=== PATIENT | female | born 1935 | race Caucasian/White ===

== ENCOUNTER 2019-05-25 13:54 | Inpatient (IN) | payer MEDICARE, BC ==
[2019-05-25] MEDS ORDERED: NALOXONE 0.4 MG/ML 1 ML VIAL IV PRN (15:02)
--- NOTE | 2019-05-25 15:02 | ED ---
Fall HPI - General Chief Complaint: Fall Stated Complaint: Broken Left Femur Time Seen by Provider: 05/25/19 14:00 Source: patient, EMS, RN notes reviewed, old records reviewed Mode of arrival: EMS - History of Present Illness Initial Comments: This is a 83-year-old female her prior history of hip replacement who apparently was stepping off the scale today at her nursing facility when she fell she did sustain a femur fracture on the left side. She was seen initially at [facility] transfer here for evaluation. The case had been discussed prior to arrival with Dr. Jaeger who is agreed to accept the patient transfer. Patient does have dementia she complains of no other pain no head neck or back pain no other modifying factors at this time. MD Complaint: fall - Related Data Allergies Allergy/AdvReac Type Severity Reaction Status Date / Time Penicillins Allergy Swelling Verified 05/25/19 14:49 Review of Systems ROS Statement: Those systems with pertinent positive or pertinent negative responses have been documented in the HPI. ROS Other: All systems not noted in ROS Statement are negative. Past Medical History Past Medical History: Dementia, Deep Vein Thrombosis (DVT), Hyperlipidemia, Hypertension, Thyroid Disorder Additional Past Medical History / Comment(s): Hypothyroidism History of Any Multi-Drug Resistant Organisms: None Reported Past Surgical History: Cholecystectomy, Hysterectomy Additional Past Surgical History / Comment(s): Left hip replacement, [place] filter Past Psychological History: No Psychological Hx Reported Smoking Status: Never smoker Past Alcohol Use History: None Reported Past Drug Use History: None Reported General Exam - General Exam Comments Initial Comments: This is a well-developed well-nourished awake alert but pleasantly confused female Limitations: altered mental status General appearance: alert, in no apparent distress Head exam: Present: atraumatic, normocephalic, normal inspection Eye exam: Present: normal appearance, PERRL, EOMI. Absent: scleral icterus, conjunctival injection, periorbital swelling ENT exam: Present: normal exam, mucous membranes moist Neck exam: Present: normal inspection. Absent: tenderness, meningismus, lymphadenopathy Respiratory exam: Present: normal lung sounds bilaterally. Absent: respiratory distress, wheezes, rales, rhonchi, stridor Cardiovascular Exam: Present: regular rate, normal rhythm, normal heart sounds. Absent: systolic murmur, diastolic murmur, rubs, gallop, clicks GI/Abdominal exam: Present: soft, normal bowel sounds. Absent: distended, tenderness, guarding, rebound, rigid Extremities exam: Present: tenderness, normal capillary refill, other (Tennis palpation of the mid left thigh no open wound seen no sensorimotor vascular deficits distally no tenderness over the hip or pelvis.). Absent: normal inspection, full ROM, pedal edema, joint swelling, calf tenderness Back exam: Present: normal inspection Neurological exam: Present: alert, oriented X3, CN II-XII intact Psychiatric exam: Present: normal affect, normal mood Skin exam: Present: warm, dry, intact, normal color. Absent: rash Course Vital Signs 05/25/19 14:04 Temperature 97.6 F Pulse Rate 58 L Respiratory 14 Rate Blood Pressure 140/59 O2 Sat by Pulse 98 Oximetry Medical Decision Making - Medical Decision Making Did review the materials presented from the sending facility patient be admitted Dr. Jaeger. Disposition Clinical Impression: Fall, Left femoral shaft fracture Disposition: ADMITTED IP TO THIS [facility] Condition: Fair Referrals: Beau Chacon MD [Primary Care Provider] - 1-2 days
[2019-05-25] MEDS: SODIUM CHLORIDE 0.9% 1,000 ML IV SCH (15:22)
--- NOTE | 2019-05-25 17:34 | P.HPOR ---
History of Present Illness H&P Date: 05/25/19 Chief Complaint: Left hip/leg pain She presents as a [facility]iah transferred from [facility] with history of fall, sustaining injury to her left femur. She has history of dementia and resides in an Alzheimer unit in an extended care facility. She apparently fell while step ping off of the scale this morning. The patient is a poor historian. Family is at bedside. Past Medical History Past Medical History: Dementia, Deep Vein Thrombosis (DVT), Hyperlipidemia, Hypertension, Thyroid Disorder Additional Past Medical History / Comment(s): Hypothyroidism History of Any Multi-Drug Resistant Organisms: None Reported Past Surgical History: Cholecystectomy, Hysterectomy Additional Past Surgical History / Comment(s): Left hip replacement, [place] filter Past Psychological History: No Psychological Hx Reported Smoking Status: Never smoker Past Alcohol Use History: None Reported Past Drug Use History: None Reported Medications and Allergies Home Medications Medication Instructions Recorded Confirmed Type Acetaminophen Tab [Tylenol Tab] 650 mg PO BID@0700,209905/25/19 05/25/19 History Acetaminophen Tab [Tylenol Tab] 650 mg PO Q4H PRN 05/25/19 05/25/19 History Artificial Tears-Hypromellose 2 drops BOTH EYES DAILY PRN 05/25/19 05/25/19 History [Artificial Tear Drops] Aspirin EC [Ecotrin Low Dose] 81 mg PO HS@209905/25/19 05/25/19 History Atorvastatin [Lipitor] 80 mg PO HS@209905/25/19 05/25/19 History Biotin 1mg 1 mg PO DAILY@69905/25/19 05/25/19 History Calcium Carbonate/Vitamin D3 1 tab PO DAILY@69905/25/19 05/25/19 History [Calcium 600-Vit D3 200 Tablet] Donepezil [Aricept] 10 mg PO HS@209905/25/19 05/25/19 History Folic Acid 0.8 mg PO DAILY@69905/25/19 05/25/19 History Hydrochlorothiazide [Hydrodiuril] 50 mg PO DAILY@69905/25/19 05/25/19 History Isosorbide Mononitrate ER [Imdur] 30 mg PO DAILY@69905/25/19 05/25/19 History Levothyroxine Sodium 125 mcg PO HS@209905/25/19 05/25/19 History Lisinopril [Prinivil] 20 mg PO DAILY@0700 05/25/19 05/25/19 History Metoprolol Succinate (ER) [Toprol 50 mg PO DAILY@69905/25/19 05/25/19 History Xl] Multivitamins, Thera [Multivitamin 1 tab PO DAILY@0730 05/25/19 05/25/19 History (formulary)] Niacin 500 mg PO HS@2100 05/25/19 05/25/19 History aMILoride HCL 5 mg PO DAILY@0700 05/25/19 05/25/19 History Allergies Allergy/AdvReac Type Severity Reaction Status Date / Time Penicillins Allergy Swelling Verified 05/25/19 14:49 Physical Examination This is a pleasantly confused 83-year-old female in no acute distress. She is alert and oriented to person. She does not recall the specific events of her fall. Exam of the head neck reveal no obvious deformity. She has full cervical spine motion without difficulty or pain. No pain on palpation about cervical spine or paraspinal musculature. Exam of the upper extremities reveals no obvious deformity. She has fairly good shoulder, elbow, wrist and finger motion bilaterally. Neurovascular status the upper extremities is intact. Exam of the lower extremities reveals no obvious deformity. There is some swelling noticed to the left thigh. There is tenderness with palpation about the mid to proximal left thigh. She has full foot and ankle motion bilaterally. Neurovascular status to the lower extremities is intact. Results X-rays taken prior to transfer reveal a mildly displaced periprosthetic fracture of the proximal femoral shaft. Assessment and Plan (1) Periprosthetic fracture around internal prosthetic hip joint Current Visit: Yes Status: Acute Code(s): M97.8XXA - PERIPROSTH FRACTURE AROUND OTHER INTERNAL PROSTH JOINT, INIT; Z96.649 - PRESENCE OF UNSPECIFIED ARTIFICIAL HIP JOINT SNOMED Code(s): 178844473 (2) Alzheimer's dementia Current Visit: Yes Status: Acute Code(s): G30.9 - ALZHEIMER'S DISEASE, UNSPECIFIED; F02.80 - DEMENTIA IN OTH DISEASES CLASSD ELSWHR W/O BEHAVRL DISTURB SNOMED Code(s): 01318260 (3) Fall Current Visit: Yes Status: Acute Code(s): W19.XXXA - UNSPECIFIED FALL, INITIAL ENCOUNTER SNOMED Code(s): 7323815 (4) Left femoral shaft fracture Current Visit: Yes Status: Acute Code(s): S72.302A - UNSP FRACTURE OF SHAFT OF LEFT FEMUR, INIT FOR CLOS FX SNOMED Code(s): 26288582 Plan: The clinical and x-ray findings are discussed with the patient and her family. It is recommended she undergo open reduction and internal fixation with cables and possibly a plate. The procedure has been discussed in detail including the possible risks and outcomes of surgery. She will be nonweightbearing postoperatively. After discussion and consideration the patient and her family elects to proceed with surgery. She'll be admitted to our service and ask internal medicine to clear her medically for surgery. We are planning surgery Saturday.
[2019-05-25] MEDS: HEPARIN SODIUM,PORCINE 5,000 UNIT/ML 1 ML VIAL SQ SCH (23:15)
--- NOTE | 2019-05-25 23:58 | P.CONS ---
History of Present Illness - Reason for Consult Consult date: 05/25/19 Medical management Requesting physician: Luis A Jaeger - Chief Complaint Fall - History of Present Illness Consultation: This is a 83-year-old patient who was sent in from [facility]. Patient follows with Dr. Beau Chacon. Chronic stable medical conditions include hypertension, hyperlipidemia, hypothyroid and advanced dementia. Patient apparently lives in an Alzheimer's unit. Normally able to get around. It is unclear about the circumstances but patient suffered a fall leading to left femur fracture. Did spoken to Dr. jaeger from [facility] to except with the patient. Because the patient dementia patient not able to give any history really not she is really able to participate in the discussion. There was no repeated chest pain or shortness of breath. And no history of such. Patient had a prior hip surgery. Patient has localized pain to the left hip. And uncomfortable. Review of systems: GEN.: Tired EYES: None HEENT: None NECK: None RESPIRATORY: None CARDIOVASCULAR: None GASTROINTESTINAL: None GENITOURINARY: None MUSCULOSKELETAL: Pain in the joints] LYMPHATICS: None HEMATOLOGICAL: None PSYCHIATRY: None NEUROLOGICAL: Baseline confused Past medical history: Hypertension, hyperlipidemia, hypothyroid, advanced dementia Social history: Lives in the Alzheimer's unit. No history of alcohol or smoking reported Family history: Cancer Physical examination: VITAL SIGNS: 97.8, 60, 16, 16 2 x 75, 95% room air GENERAL: Average built, sitting up, tired appearing. EYES: Pupils equal. Conjunctiva normal. HEENT: External appearance of nose and ears normal, oral cavity grossly normal. NECK: JVD not raised; masses not palpable. HEART: First and second heart sounds are normal; no edema. LUNGS: Respiratory rate normal; clear to auscultation. ABDOMEN: Soft, nontender, liver spleen not palpable, no masses palpable. PSYCH: Patient's confused can answer some questionsl. NEUROLOGICAL: Cranial nerves grossly intact; no facial asymmetry, power and sensation grossly intact. LYMPHATICS: No lymph nodes palpable in the axilla and neck MUSCULOSKELETAL: Evidence of osteoarthritis and limited range of motion on the left hip Assessment: -Left femur fracture secondary to fall -Essential hypertension -Hyperlipidemia -Hypothyroid -Major cognitive impairment from underlying exam was dementia Plan: Prior to the injury patient was ambulated free reportedly. No chest pain no shortness breath. Patient is a moderate risk for surgery but perhaps recorded medications. Patient home medications should be continued include beta blockers. No family is present at the bedside. Thank you Dr. Jaeger Past Medical History Past Medical History: Dementia, Deep Vein Thrombosis (DVT), Hyperlipidemia, Hypertension, Thyroid Disorder Additional Past Medical History / Comment(s): Hypothyroidism History of Any Multi-Drug Resistant Organisms: None Reported Past Surgical History: Cholecystectomy, Hysterectomy Additional Past Surgical History / Comment(s): Left hip replacement, [place] filter Past Anesthesia/Blood Transfusion Reactions: No Reported Reaction Past Psychological History: No Psychological Hx Reported Smoking Status: Never smoker Past Alcohol Use History: None Reported Past Drug Use History: None Reported - Past Family History Father Family Medical History: Cancer Mother Family Medical History: Cancer Medications and Allergies Home Medications Medication Instructions Recorded Confirmed Type Acetaminophen Tab [Tylenol Tab] 650 mg PO BID@0700,209905/25/19 05/25/19 History Acetaminophen Tab [Tylenol Tab] 650 mg PO Q4H PRN 05/25/19 05/25/19 History Artificial Tears-Hypromellose 2 drops BOTH EYES DAILY PRN 05/25/19 05/25/19 History [Artificial Tear Drops] Aspirin EC [Ecotrin Low Dose] 81 mg PO HS@209905/25/19 05/25/19 History Atorvastatin [Lipitor] 80 mg PO HS@209905/25/19 05/25/19 History Biotin 1mg 1 mg PO DAILY@69905/25/19 05/25/19 History Calcium Carbonate/Vitamin D3 1 tab PO DAILY@69905/25/19 05/25/19 History [Calcium 600-Vit D3 200 Tablet] Donepezil [Aricept] 10 mg PO HS@209905/25/19 05/25/19 History Folic Acid 0.8 mg PO DAILY@69905/25/19 05/25/19 History Hydrochlorothiazide [Hydrodiuril] 50 mg PO DAILY@69905/25/19 05/25/19 History Isosorbide Mononitrate ER [Imdur] 30 mg PO DAILY@69905/25/19 05/25/19 History Levothyroxine Sodium 125 mcg PO HS@209905/25/19 05/25/19 History Lisinopril [Prinivil] 20 mg PO DAILY@69905/25/19 05/25/19 History Metoprolol Succinate (ER) [Toprol 50 mg PO DAILY@0700 05/25/19 05/25/19 History Xl] Multivitamins, Thera [Multivitamin 1 tab PO DAILY@0730 05/25/19 05/25/19 History (formulary)] Niacin 500 mg PO HS@2100 05/25/19 05/25/19 History aMILoride HCL 5 mg PO DAILY@0700 05/25/19 05/25/19 History Allergies Allergy/AdvReac Type Severity Reaction Status Date / Time Penicillins Allergy Swelling Verified 05/25/19 14:49 Physical Exam Vitals: Vital Signs Temp Pulse Pulse Resp BP BP Pulse Ox 05/25/19 18:20 97.8 F 60 16 162/75 95 05/25/19 17:19 97.6 F 64 15 147/77 98 05/25/19 15:30 64 15 137/53 97 05/25/19 15:00 62 16 127/56 96 05/25/19 14:30 63 15 140/59 96 05/25/19 14:04 97.6 F 58 L 14 140/59 98 Intake and Output 05/25/19 05/25/19 05/25/19 06:59 14:59 22:59 Other: Weight 86.636 kg
[2019-05-26] MEDS: SODIUM CHLORIDE 0.9% 1,000 ML IV SCH ×3 (05:07→19:43)
[2019-05-26] MEDS: HEPARIN SODIUM,PORCINE 5,000 UNIT/ML 1 ML VIAL SQ SCH ×2 (09:17→21:29)
[2019-05-26] MEDS: ACETAMINOPHEN TAB 325 MG TAB PO PRN ×2 (09:26→14:52)
[2019-05-26] MEDS ORDERED: ARTIFICIAL TEARS-HYPROMELLOSE DROPS 15 ML BTL BOTH EYES PRN (09:57)
[2019-05-26] MEDS ORDERED: HYDROcodone/APAP 5-325MG 1 EACH TAB PO PRN (17:15)
[2019-05-26] MEDS: ASPIRIN 81 MG PO SCH (21:29)
[2019-05-26] MEDS: DONEPEZIL 10 MG TAB PO SCH (21:29)
[2019-05-26] MEDS: NIACIN TR 500 MG CAPLET PO SCH (21:29)
[2019-05-26] MEDS: LEVOTHYROXINE 125 MCG TAB PO SCH (21:29)
[2019-05-26] MEDS: ATORVASTATIN 80 MG TAB PO SCH (21:29)
--- NOTE | 2019-05-26 23:59 | P.PN ---
Progress Note - Text Progress Note Date: 05/26/19 Consultation: This is a 83-year-old patient who was sent in from [facility]. Patient follows with Dr. Beau Chacon. Chronic stable medical conditions include hypertension, hyperlipidemia, hypothyroid and advanced dementia. Patient apparently lives in an Alzheimer's unit. Normally able to get around. It is unclear about the circumstances but patient suffered a fall leading to left femur fracture. Did spoken to Dr. bravo from [facility] to except with the patient. Because the patient dementia patient not able to give any history really not she is really able to participate in the discussion. There was no repeated chest pain or shortness of breath. And no history of such. Patient had a prior hip surgery. Patient has localized pain to the left hip. And uncomfortable. Today-family the bedside. Saw the patient this morning. Pending surgery. Answering simple questions. Review of systems: Was done for constitutional, cardiovascular, GI, pulmonary. Musculoskeletal relevant finding as above Active Medications Acetaminophen (Tylenol Tab) 650 mg PO Q6HR PRN PRN Reason: Mild Pain or Fever > 100.5 Last Admin: 05/26/19 14:52 Dose: 650 mg Documented by: Hydrocodone Bitart/Acetaminophen ([place] 5-325) 1 each PO Q4HR PRN PRN Reason: Pain Artificial Tears (Artificial Tear Drops) 2 drops BOTH EYES DAILY PRN PRN Reason: Dry Eye(s) Aspirin (Aspirin) 81 mg PO HS@2100 [facility] Last Admin: 05/26/19 21:29 Dose: 81 mg Documented by: Atorvastatin Calcium (Lipitor) 80 mg PO HS@2100 [facility] Last Admin: 05/26/19 21:29 Dose: 80 mg Documented by: Calcium Carbonate (Oscal 500+D) 1 each PO DAILY@0700 [facility] Donepezil HCl (Aricept) 10 mg PO HS@2100 [facility] Last Admin: 05/26/19 21:29 Dose: 10 mg Documented by: Folic Acid (Folic Acid) 1 mg PO DAILY@0700 [facility] Heparin Sodium (Porcine) (Heparin) 5,000 unit SQ Q12HR [facility] Last Admin: 05/26/19 21:29 Dose: 5,000 unit Documented by: Hydrochlorothiazide (Hydrodiuril) 50 mg PO DAILY@0700 [facility] Sodium Chloride (Saline 0.9%) 1,000 mls @ 80 mls/hr IV .[id number] [facility] Last Admin: 05/26/19 19:43 Dose: 80 mls/hr Documented by: Isosorbide Mononitrate (Imdur) 30 mg PO DAILY@0700 [facility] Levothyroxine Sodium (Synthroid) 125 mcg PO HS@2100 [facility] Last Admin: 05/26/19 21:29 Dose: 125 mcg Documented by: Lisinopril (Zestril) 20 mg PO DAILY@0700 [facility] Metoprolol Succinate (Toprol Xl) 50 mg PO DAILY@0700 [facility] Multivitamins (Theragran) 1 each PO DAILY@0730 [facility] Naloxone HCl (Narcan) 0.2 mg IV Q2M PRN PRN Reason: Opioid Reversal Niacin (Niacin Tr) 500 mg PO HS@2100 [facility] Last Admin: 05/26/19 21:29 Dose: 500 mg Documented by: Spironolactone (Aldactone) 25 mg PO Q12H [facility] Physical examination: VITAL SIGNS: 97.8, 75, 16, 172/79, 98% room air GENERAL: Propped up in bed, comfortable. EYES: Pupils equal. Conjunctiva normal. HEENT: External appearance of nose and ears normal, oral cavity grossly normal. NECK: JVD not raised; masses not palpable. HEART: First and second heart sounds are normal; no edema. LUNGS: Respiratory rate normal; clear to auscultation. ABDOMEN: Soft, nontender, liver spleen not palpable, no masses palpable. PSYCH: Also simple questions. NEUROLOGICAL: Cranial nerves grossly intact; no facial asymmetry, power and sensation grossly intact. LYMPHATICS: No lymph nodes palpable in the axilla and neck MUSCULOSKELETAL: Evidence of osteoarthritis and limited range of motion on the left hip Assessment: -Left femur fracture secondary to fall, pending surgery -Essential hypertension -Hyperlipidemia -Hypothyroid -Major cognitive impairment from underlying Alzheimer's dementia Plan: Continue current medication. Plan. Home medications resumed. Pending surgery. Care was discussed with the family the bedside. Thank you Dr. Bravo
[2019-05-27] MEDS ORDERED: LIDOCAINE 1% 20 ML VIAL (10MG/ML) FOR IV START INTRADERMA PRN (02:12)
[2019-05-27] MEDS ORDERED: HYDROmorphone 0.5 MG/0.5 ML SYRINGE IVP PRN ×4 (02:12→18:50)
[2019-05-27] MEDS ORDERED: ONDANSETRON 4 MG/2 ML VIAL IVP ONE (02:12)
[2019-05-27] MEDS ORDERED: fentaNYL (PF) 50 MCG/ML 2 ML AMP IV PRN (02:12)
[2019-05-27] MEDS ORDERED: DEXAMETHASONE SOD PHOSPHATE 10 MG/ML 1 ML VIAL IV ONE (02:12)
[2019-05-27] MEDS ORDERED: MIDAZOLAM 2 MG/2 ML VIAL IV PRN (02:12)
[2019-05-27] MEDS ORDERED: BIOTIN 1 MG PO SCH (07:00)
[2019-05-27] MEDS: HEPARIN SODIUM,PORCINE 5,000 UNIT/ML 1 ML VIAL SQ SCH ×2 (07:27→20:27)
[2019-05-27] MEDS: SPIRONOLACTONE 25 MG TAB PO SCH ×2 (07:27→20:27)
[2019-05-27] MEDS: MULTIVITAMINS, THERA 1 EACH TAB PO SCH (07:27)
[2019-05-27] MEDS: SODIUM CHLORIDE 0.9% 1,000 ML IV SCH ×2 (07:28→19:50)
[2019-05-27] MEDS: FOLIC ACID 1 MG TAB PO SCH (07:28)
[2019-05-27] MEDS: LACTATED RINGERS 1,000 ML IV SCH ×3 (07:28→19:50)
[2019-05-27] MEDS: HYDROCHLOROTHIAZIDE 50 MG TAB PO SCH (07:28)
[2019-05-27] MEDS: LISINOPRIL 20 MG TAB PO SCH (07:28)
[2019-05-27] MEDS: CALCIUM CARB-VIT D 500MG-200UN 1 EACH TAB PO SCH (07:28)
[2019-05-27] MEDS: ISOSORBIDE MONONITRATE ER 30 MG TAB.ER.24H PO SCH (07:57)
[2019-05-27] MEDS: METOPROLOL SUCCINATE (ER) 50 MG TAB.ER.24H PO SCH (07:58)
[2019-05-27 09:21] LABS: HCT 30.8 % (34.0-46.0); HGB 10.1 gm/dL (11.4-16.0); MCH 33.2 pg (25.0-35.0); MCV 100.7 fL (80.0-100.0); Macrocytosis Slight; Mean Platelet Volume 6.5; Platelet Count 259 k/uL (150-450); RBC 3.05 m/uL (3.80-5.40); RDW 13.7 % (11.5-15.5); WBC 13.8 k/uL (3.8-10.6)
[2019-05-27 09:30] LABS: INR 0.9 (<1.2); Prothrombin Time 9.6 sec (9.0-12.0)
[2019-05-27 09:33] LABS: Calcium 8.5 mg/dL (8.4-10.2); Potassium 3.9 mmol/L (3.5-5.1)
[2019-05-27] MEDS ORDERED: IV FLUID CONTINUATION 550 ML IV ONE (13:44)
[2019-05-27] MEDS ORDERED: ceFAZolin 1,000 MG VIAL ONE (15:24)
[2019-05-27] MEDS ORDERED: KETAMINE 10 MG/ML 20 ML VIAL ONE (15:24)
[2019-05-27] MEDS ORDERED: MIDAZOLAM 2 MG/2 ML VIAL ONE (15:24)
[2019-05-27] MEDS ORDERED: diphenhydrAMINE 50 MG/ML 1 ML VIAL ONE (15:24)
[2019-05-27] MEDS ORDERED: ePHEDrine SULFATE/0.9% NACL/PF 50 MG/5 ML SYRINGE IV ONE (15:24)
[2019-05-27] MEDS ORDERED: fentaNYL (PF) 50 MCG/ML 2 ML AMP ONE (15:24)
[2019-05-27] MEDS ORDERED: PHENYLEPHRINE-0.9% NACL SYG 1 MG/10 ML SYRINGE ONE (15:24)
[2019-05-27] MEDS ORDERED: PROPOFOL 10 MG/ML 20 ML VIAL IV ONE (15:24)
[2019-05-27] MEDS ORDERED: SODIUM CHLORIDE 0.9% 50 ML with ceFAZolin 2,000 MG IV ONE ×2 (15:34)
[2019-05-27] MEDS ORDERED: LACTATED RINGERS 1,000 ML IV ONE ×2 (17:00→18:02)
--- NOTE | 2019-05-27 18:26 | XR ---
Fluoroscopy INDICATION: Pain FINDINGS: Fluoroscopy time: 32 seconds. Images obtained: 3. IMPRESSIONS: 1. Documentation of fluoroscopy.
[2019-05-27] MEDS ORDERED: MAGNESIUM HYDROXIDE 2,400 MG/10 ML CUP PO PRN (18:50)
[2019-05-27] MEDS ORDERED: NALOXONE 0.4 MG/ML 1 ML VIAL IV PRN (18:50)
[2019-05-27] MEDS ORDERED: ONDANSETRON 4 MG/2 ML VIAL IVP PRN (18:50)
[2019-05-27] MEDS ORDERED: TEMAZEPAM 15 MG CAP PO PRN (18:50)
[2019-05-27] MEDS ORDERED: HYDROcodone/APAP 5-325MG 1 EACH TAB PO PRN ×2 (18:50)
[2019-05-27 20:18] LABS: Basophils # (A) 0.1 k/uL (0-0.2); Basophils % (A) 0 %; Eosinophils # (A) 0.1 k/uL (0-0.7); Eosinophils % (A) 0 %; HCT 29.7 % (34.0-46.0); HGB 9.5 gm/dL (11.4-16.0); Lymphocytes # (A) 2.2 k/uL (1.0-4.8); Lymphocytes % (A) 9 %; MCH 33.6 pg (25.0-35.0); MCHC 32.1 g/dL (31.0-37.0); MCV 104.8 fL (80.0-100.0); Macrocytosis Moderate; Mean Platelet Volume 6.8; Monocytes # (A) 1.3 k/uL (0-1.0); Monocytes % (A) 5 %; Neutrophils # (A) 21.4 k/uL (1.3-7.7); Neutrophils % (A) 85 %; Platelet Count 286 k/uL (150-450); RBC 2.83 m/uL (3.80-5.40); RDW 13.8 % (11.5-15.5); WBC 25.2 k/uL (3.8-10.6)
[2019-05-27] MEDS: DONEPEZIL 10 MG TAB PO SCH (20:27)
[2019-05-27] MEDS: NIACIN TR 500 MG CAPLET PO SCH (20:27)
[2019-05-27] MEDS: ASPIRIN 81 MG PO SCH (20:27)
[2019-05-27] MEDS: LEVOTHYROXINE 125 MCG TAB PO SCH (20:27)
[2019-05-27] MEDS: ATORVASTATIN 80 MG TAB PO SCH (20:27)
[2019-05-27] MEDS: SENNOSIDES-DOCUSATE SODIUM 1 EACH TAB PO SCH (20:33)
--- NOTE | 2019-05-28 00:11 | P.PN ---
Progress Note - Text Progress Note Date: 05/27/19 Interval history: This is a 83-year-old patient who was sent in from [facility]. Patient follows with Dr. Beau Chacon. Chronic stable medical conditions include hypertension, hyperlipidemia, hypothyroid and advanced dementia. Patient apparently lives in an Alzheimer's unit. Normally able to get around. It is unclear about the circumstances but patient suffered a fall leading to left femur fracture. Did spoken to Dr. bravo from [facility] to except with the patient. Because the patient dementia patient not able to give any history really not she is really able to participate in the discussion. There was no repeated chest pain or shortness of breath. And no history of such. Patient had a prior hip surgery. Patient has localized pain to the left hip. Patient underwent left hip surgery late this afternoon. Saw the patient after surgery. Lethargic from anesthesia. Family the bedside.. Review of systems: Could not be done as patient is lethargic Active Medications Acetaminophen (Tylenol Tab) 650 mg PO Q6HR PRN PRN Reason: Mild Pain or Fever > 100.5 Last Admin: 05/26/19 14:52 Dose: 650 mg Documented by: Hydrocodone Bitart/Acetaminophen ([place] 5-325) 1 each PO Q6HR PRN PRN Reason: Pain Scale 1 to 5 Hydrocodone Bitart/Acetaminophen ([place] 5-325) 2 each PO Q6HR PRN PRN Reason: Pain Scale 6 to 10 Artificial Tears (Artificial Tear Drops) 2 drops BOTH EYES DAILY PRN PRN Reason: Dry Eye(s) Aspirin (Aspirin) 81 mg PO HS@2100 [facility] Last Admin: 05/27/19 20:27 Dose: 81 mg Documented by: Atorvastatin Calcium (Lipitor) 80 mg PO HS@2100 [facility] Last Admin: 05/27/19 20:27 Dose: 80 mg Documented by: Calcium Carbonate (Oscal 500+D) 1 each PO DAILY@0700 [facility] Last Admin: 05/27/19 07:28 Dose: Not Given Documented by: Donepezil HCl (Aricept) 10 mg PO HS@2100 [facility] Last Admin: 05/27/19 20:27 Dose: 10 mg Documented by: Folic Acid (Folic Acid) 1 mg PO DAILY@0700 [facility] Last Admin: 05/27/19 07:28 Dose: Not Given Documented by: Heparin Sodium (Porcine) (Heparin) 5,000 unit SQ Q12HR [facility] Last Admin: 05/27/19 20:27 Dose: 5,000 unit Documented by: Hydrochlorothiazide (Hydrodiuril) 50 mg PO DAILY@0700 [facility] Last Admin: 05/27/19 07:28 Dose: Not Given Documented by: Hydromorphone HCl (Dilaudid) 0.125 mg IVP Q3HR PRN PRN Reason: Pain Scale 1 to 3 Hydromorphone HCl (Dilaudid) 0.25 mg IVP Q3HR PRN PRN Reason: Pain Scale 4 to 6 Hydromorphone HCl (Dilaudid) 0.5 mg IVP Q3HR PRN PRN Reason: Pain Scale 7 to 10 Sodium Chloride (Saline 0.9%) 1,000 mls @ 80 mls/hr IV .[id number] [facility] Last Admin: 05/27/19 19:50 Dose: Not Given Documented by: Lactated Ringer's (Lactated Ringers) 1,000 mls @ 100 mls/hr IV .Q10H [facility] Last Admin: 05/27/19 19:50 Dose: Not Given Documented by: Isosorbide Mononitrate (Imdur) 30 mg PO DAILY@07 [facility] Last Admin: 05/27/19 07:57 Dose: 30 mg Documented by: Levothyroxine Sodium (Synthroid) 125 mcg PO HS@2100 [facility] Last Admin: 05/27/19 20:27 Dose: 125 mcg Documented by: Lidocaine HCl (.Xylocaine 1% Inj (10mg/Ml) For Iv Start) 0.1 ml INTRADERMA PER PROTOCOL PRN PRN Reason: IV Start Lisinopril (Zestril) 20 mg PO DAILY@07 [facility] Last Admin: 05/27/19 07:28 Dose: Not Given Documented by: Magnesium Hydroxide (Milk Of Magnesia) 2,400 mg PO DAILY PRN PRN Reason: Constipation Metoprolol Succinate (Toprol Xl) 50 mg PO DAILY@0700 [facility] Last Admin: 05/27/19 07:58 Dose: 50 mg Documented by: Multivitamins (Theragran) 1 each PO DAILY@0730 [facility] Last Admin: 05/27/19 07:27 Dose: Not Given Documented by: Naloxone HCl (Narcan) 0.2 mg IV Q2M PRN PRN Reason: Opioid Reversal Naloxone HCl (Narcan) 0.2 mg IV Q2M PRN PRN Reason: Opioid Reversal Niacin (Niacin Tr) 500 mg PO HS@2100 [facility] Last Admin: 05/27/19 20:27 Dose: 500 mg Documented by: Ondansetron HCl (Zofran) 4 mg IVP Q6HR PRN PRN Reason: Nausea And Vomiting Senna/Docusate Sodium (Senokot-S) 2 each PO HS [facility] Last Admin: 05/27/19 20:33 Dose: Not Given Documented by: Spironolactone (Aldactone) 25 mg PO Q12H [facility] Last Admin: 05/27/19 20:27 Dose: 25 mg Documented by: Temazepam (Restoril) 15 mg PO HS PRN PRN Reason: Insomnia Physical examination: VITAL SIGNS: 97.6, 91, 16, 138.82, 99% on 3 L GENERAL: Laying in bed, lethargic EYES: Pupils equal. Conjunctiva normal. HEENT: External appearance of nose and ears normal, oral cavity grossly normal. NECK: JVD unable to assess; masses not palpable. HEART: First and second heart sounds are normal; no edema. LUNGS: Respiratory rate normal; clear to auscultation. ABDOMEN: Soft, nontender, liver spleen not palpable, no masses palpable. PSYCH: Patient lethargic, unable to assess Assessment: -Left femur fracture secondary to fall, followed by ORIF and cable plate and cable fixation -Essential hypertension -Hyperlipidemia -Hypothyroid -Major cognitive impairment from underlying Alzheimer's dementia Plan: Continue current medication treatment plan. Patient is on IV fluids and subcu heparin. Thank you Dr. Bravo
[2019-05-28] MEDS: LACTATED RINGERS 1,000 ML IV SCH ×3 (04:51→20:15)
[2019-05-28] MEDS: SODIUM CHLORIDE 0.9% 1,000 ML IV SCH ×2 (04:51→18:55)
[2019-05-28] MEDS: METOPROLOL SUCCINATE (ER) 50 MG TAB.ER.24H PO SCH (08:37)
[2019-05-28] MEDS: CALCIUM CARB-VIT D 500MG-200UN 1 EACH TAB PO SCH (08:37)
[2019-05-28] MEDS: SPIRONOLACTONE 25 MG TAB PO SCH ×2 (08:37→20:06)
[2019-05-28] MEDS: LISINOPRIL 20 MG TAB PO SCH (08:37)
[2019-05-28] MEDS: FOLIC ACID 1 MG TAB PO SCH (08:37)
[2019-05-28] MEDS: HYDROCHLOROTHIAZIDE 50 MG TAB PO SCH (08:37)
[2019-05-28] MEDS: HEPARIN SODIUM,PORCINE 5,000 UNIT/ML 1 ML VIAL SQ SCH ×2 (08:38→20:06)
[2019-05-28] MEDS: MULTIVITAMINS, THERA 1 EACH TAB PO SCH (08:38)
[2019-05-28] MEDS: ISOSORBIDE MONONITRATE ER 30 MG TAB.ER.24H PO SCH (08:58)
--- NOTE | 2019-05-28 09:08 | P.PN ---
Subjective Progress Note Date: 05/28/19 Principal diagnosis: Periprosthetic fracture left femur. Status post open reduction internal fixation with cable fixation left proximal femur. This is an 83-year-old female with history of dementia. She is status post open reduction internal fixation of the left proximal femur with cable fixation of her periprosthetic fracture. She is stable from an orthopedic standpoint. She has no new complaints or concerns today. Vital signs are stable. Objective - Vital Signs Vital signs: Vital Signs Temp 98.5 F 05/28/19 08:22 Pulse 109 H 05/28/19 08:22 Resp 16 05/28/19 08:22 BP 135/73 05/28/19 08:22 Pulse Ox 92 L 05/28/19 08:22 Intake & Output 05/27/19 05/28/19 05/28/19 18:59 06:59 18:59 Intake Total 1970 1200 Output Total 900 Balance 1070 1200 Intake: IV 1970 Intake, IV Titration 1000 Amount Lactated Ringers 1,000 ml 1000 @ 100 mls/hr IV .Q10H COUNTS INCLUDE 234 BEDS AT THE [facility] Rx#:[id number] Oral 200 Output: Urine 400 Estimated Blood Loss 500 Other: Voiding Method Indwelling Catheter Indwelling Catheter - Exam This is a pleasant 83-year-old female in no acute distress. She is alert with confusion. Exam of the left lower extremity reveals that her dressing is clean, dry and intact. She has been changed by nursing staff. She has full toe motion without difficulty or pain. Neurovascular status to the lower extremities is intact. - Labs CBC & Chem 7: 05/27/19 19:54 05/27/19 09:01 Labs: Abnormal Lab Results - Last 24 Hours (Table) 05/27/19 05/27/19 05/27/19 Range/Units 09:01 09:01 19:54 WBC 13.8 H 25.2 H (3.8-10.6) k/uL RBC 3.05 L 2.83 L (3.80-5.40) m/uL Hgb 10.1 L 9.5 L (11.4-16.0) gm/dL Hct 30.8 L 29.7 L (34.0-46.0) % MCV 100.7 H 104.8 H (80.0-100.0) fL Neutrophils # 21.4 H (1.3-7.7) k/uL Monocytes # 1.3 H (0-1.0) k/uL Sodium 133 L (137-145) mmol/L Glucose 116 H (74-99) mg/dL Assessment and Plan (1) Periprosthetic fracture around internal prosthetic hip joint Current Visit: Yes Status: Acute Code(s): M97.8XXA - PERIPROSTH FRACTURE AROUND OTHER INTERNAL PROSTH JOINT, INIT; Z96.649 - PRESENCE OF UNSPECIFIED A RTIFICIAL HIP JOINT SNOMED Code(s): 822751919 (2) Alzheimer's dementia Current Visit: Yes Status: Acute Code(s): G30.9 - ALZHEIMER'S DISEASE, UNSPECIFIED; F02.80 - DEMENTIA IN OTH DISEASES CLASSD ELSWHR W/O BEHAVRL DISTURB SNOMED Code(s): 13307386 (3) Fall Current Visit: Yes Status: Acute Code(s): W19.XXXA - UNSPECIFIED FALL, INITIAL ENCOUNTER SNOMED Code(s): 4230766 (4) Left femoral shaft fracture Current Visit: Yes Status: Acute Code(s): S72.302A - UNSP FRACTURE OF SHAFT OF LEFT FEMUR, INIT FOR CLOS FX SNOMED Code(s): 32426316 Plan: The clinical findings are discussed with the patient and her nurse. She is nonweightbearing to the left lower extremity. She may have difficulty following commands and maintaining nonweightbearing with ambulation. She may also likely will be bed to chair transfers for now. She may be discharged back to her ECF when she is cleared medically.
[2019-05-28] MEDS: ACETAMINOPHEN TAB 325 MG TAB PO PRN (16:38)
[2019-05-28] MEDS: ATORVASTATIN 80 MG TAB PO SCH (20:06)
[2019-05-28] MEDS: DONEPEZIL 10 MG TAB PO SCH (20:06)
[2019-05-28] MEDS: LEVOTHYROXINE 125 MCG TAB PO SCH (20:06)
[2019-05-28] MEDS: NIACIN TR 500 MG CAPLET PO SCH (20:06)
[2019-05-28] MEDS: SENNOSIDES-DOCUSATE SODIUM 1 EACH TAB PO SCH (20:07)
--- NOTE | 2019-05-28 22:59 | P.PN ---
Progress Note - Text Progress Note Date: 05/28/19 Interval history: This is a 83-year-old patient who was sent in from [facility]. Patient follows with Dr. Beau Chacon. Chronic stable medical conditions include hypertension, hyperlipidemia, hypothyroid and advanced dementia. Patient apparently lives in an Alzheimer's unit. Normally able to get around. It is unclear about the circumstances but patient suffered a fall leading to left femur fracture. Did spoken to Dr[facility] bravo from [facility] to except with the patient. Because the patient dementia patient not able to give any history really not she is really able to participate in the discussion. There was no repeated chest pain or shortness of breath. And no history of such. Patient had a prior hip surgery. Patient has localized pain to the left hip. Status post left hip surgery on May 27 Today-.. Laying in bed. More awake today. She eats so small amount. Review of systems: Attempted for constitutional cardio [facility] probably muscular skeletal Active Medications Acetaminophen (Tylenol Tab) 650 mg PO Q6HR PRN PRN Reason: Mild Pain or Fever > 100.5 Last Admin: 05/28/19 16:38 Dose: 650 mg Documented by: Hydrocodone Bitart/Acetaminophen ([place] 5-325) 1 each PO Q6HR PRN PRN Reason: Pain Scale 1 to 5 Hydrocodone Bitart/Acetaminophen ([place] 5-325) 2 each PO Q6HR PRN PRN Reason: Pain Scale 6 to 10 Artificial Tears (Artificial Tear Drops) 2 drops BOTH EYES DAILY PRN PRN Reason: Dry Eye(s) Aspirin (Aspirin) 325 mg PO DAILY [facility] Atorvastatin Calcium (Lipitor) 80 mg PO HS@2100 [facility] Last Admin: 05/28/19 20:06 Dose: 80 mg Documented by: Calcium Carbonate (Oscal 500+D) 1 each PO DAILY@0700 [facility] Last Admin: 05/28/19 08:37 Dose: 1 each Documented by: Donepezil HCl (Aricept) 10 mg PO HS@2100 [facility] Last Admin: 05/28/19 20:06 Dose: 10 mg Documented by: Folic Acid (Folic Acid) 1 mg PO DAILY@0700 [facility] Last Admin: 05/28/19 08:37 Dose: 1 mg Documented by: Heparin Sodium (Porcine) (Heparin) 5,000 unit SQ Q12HR [facility] Last Admin: 05/28/19 20:06 Dose: 5,000 unit Documented by: Hydrochlorothiazide (Hydrodiuril) 50 mg PO DAILY@0700 [facility] Last Admin: 05/28/19 08:37 Dose: 50 mg Documented by: Hydromorphone HCl (Dilaudid) 0.125 mg IVP Q3HR PRN PRN Reason: Pain Scale 1 to 3 Hydromorphone HCl (Dilaudid) 0.25 mg IVP Q3HR PRN PRN Reason: Pain Scale 4 to 6 Hydromorphone HCl (Dilaudid) 0.5 mg IVP Q3HR PRN PRN Reason: Pain Scale 7 to 10 Sodium Chloride (Saline 0.9%) 1,000 mls @ 80 mls/hr IV .[id number] [facility] Last Admin: 05/28/19 18:55 Dose: Not Given Documented by: Lactated Ringer's (Lactated Ringers) 1,000 mls @ 100 mls/hr IV .Q10H [facility] Last Admin: 05/28/19 20:15 Dose: 100 mls/hr Documented by: Isosorbide Mononitrate (Imdur) 30 mg PO DAILY@07 [facility] Last Admin: 05/28/19 08:58 Dose: 30 mg Documented by: Levothyroxine Sodium (Synthroid) 125 mcg PO HS@2100 [facility] Last Admin: 05/28/19 20:06 Dose: 125 mcg Documented by: Lidocaine HCl (.Xylocaine 1% Inj (10mg/Ml) For Iv Start) 0.1 ml INTRADERMA PER PROTOCOL PRN PRN Reason: IV Start Lisinopril (Zestril) 20 mg PO DAILY@07 [facility] Last Admin: 05/28/19 08:37 Dose: 20 mg Documented by: Magnesium Hydroxide (Milk Of Magnesia) 2,400 mg PO DAILY PRN PRN Reason: Constipation Metoprolol Succinate (Toprol Xl) 50 mg PO DAILY@0700 [facility] Last Admin: 05/28/19 08:37 Dose: 50 mg Documented by: Multivitamins (Theragran) 1 each PO DAILY@0730 [facility] Last Admin: 05/28/19 08:38 Dose: 1 each Documented by: Naloxone HCl (Narcan) 0.2 mg IV Q2M PRN PRN Reason: Opioid Reversal Naloxone HCl (Narcan) 0.2 mg IV Q2M PRN PRN Reason: Opioid Reversal Niacin (Niacin Tr) 500 mg PO HS@2100 [facility] Last Admin: 05/28/19 20:06 Dose: 500 mg Documented by: Ondansetron HCl (Zofran) 4 mg IVP Q6HR PRN PRN Reason: Nausea And Vomiting Senna/Docusate Sodium (Senokot-S) 2 each PO HS [facility] Last Admin: 05/28/19 20:07 Dose: Not Given Documented by: Spironolactone (Aldactone) 25 mg PO Q12H [facility] Last Admin: 05/28/19 20:06 Dose: 25 mg Documented by: Temazepam (Restoril) 15 mg PO HS PRN PRN Reason: Insomnia Physical examination: VITAL SIGNS: 97.8, 93, 16, 11 8 x 73, 95% room air GENERAL: Laying in bed, more awake today EYES: Pupils equal. Conjunctiva normal. HEENT: External appearance of nose and ears normal, oral cavity grossly normal. NECK: JVD unable to assess; masses not palpable. HEART: First and second heart sounds are normal; no edema. LUNGS: Respiratory rate normal; clear to auscultation. ABDOMEN: Soft, nontender, liver spleen not palpable, no masses palpable. PSYCH: Patient lethargic, unable to assess Dermatological: Left thigh incision healing well Assessment: Stool for C. diff negative Assessment: -Left femur fracture secondary to fall, followed by ORIF and cable plate and cable fixation -Essential hypertension -Hyperlipidemia -Hypothyroid -Major cognitive impairment from underlying Alzheimer's dementia Plan: Continue current medication treatment plan. Patient is on IV fluids and subcu heparin. Thank you Dr. Bravo
[2019-05-29] MEDS: ACETAMINOPHEN TAB 325 MG TAB PO PRN ×3 (05:28→23:50)
[2019-05-29] MEDS: CALCIUM CARB-VIT D 500MG-200UN 1 EACH TAB PO SCH (09:29)
[2019-05-29] MEDS: FOLIC ACID 1 MG TAB PO SCH (09:30)
[2019-05-29] MEDS: METOPROLOL SUCCINATE (ER) 50 MG TAB.ER.24H PO SCH (09:31)
[2019-05-29] MEDS: LISINOPRIL 20 MG TAB PO SCH (09:31)
[2019-05-29] MEDS: SPIRONOLACTONE 25 MG TAB PO SCH ×2 (09:31→20:58)
[2019-05-29] MEDS: ISOSORBIDE MONONITRATE ER 30 MG TAB.ER.24H PO SCH (09:31)
[2019-05-29] MEDS: ASPIRIN 325 MG TAB PO SCH (09:32)
[2019-05-29] MEDS: HEPARIN SODIUM,PORCINE 5,000 UNIT/ML 1 ML VIAL SQ SCH ×2 (09:32→22:10)
[2019-05-29] MEDS: MULTIVITAMINS, THERA 1 EACH TAB PO SCH (09:32)
[2019-05-29 10:39] LABS: Potassium 3.4 mmol/L (3.5-5.1)
[2019-05-29] MEDS: SODIUM CHLORIDE 0.9% 1,000 ML IV SCH ×2 (11:05→20:59)
--- NOTE | 2019-05-29 12:43 | P.PN ---
Subjective Progress Note Date: 05/29/19 Principal diagnosis: Periprosthetic fracture left femur. Status post open reduction internal fixation with cable fixation left proximal femur. This is an 83-year-old female with history of dementia. She is status post open reduction internal fixation of the left proximal femur with cable fixation of her periprosthetic fracture. She is stable from an orthopedic standpoint. She has no new complaints or concerns today. Vital signs are stable. Family is present at bedside. Objective - Vital Signs Vital signs: Vital Signs Temp 99.3 F 05/29/19 07:23 Pulse 90 05/29/19 08:00 Resp 16 05/29/19 08:00 BP 102/59 05/29/19 07:23 Pulse Ox 92 L 05/29/19 07:23 Intake & Output 05/28/19 05/29/19 05/29/19 18:59 06:59 18:59 Intake Total 1400 180 Output Total 300 350 350 Balance -300 1050 -170 Intake: Intake, IV Titration 1150 Amount Lactated Ringers 1,000 ml 1150 @ 100 mls/hr IV .Q10H [facility] Rx#:[id number] Oral 250 180 Output: Urine 300 350 350 Uretheral (Cooley) 350 Other: Voiding Method Indwelling Catheter Indwelling Catheter Indwelling Catheter # Bowel Movements 3 - Exam This is a pleasant 83-year-old female in no acute distress. She is resting comfortably in the chair. Exam of the left lower extremity reveals that her dressing is clean, dry and intact. She has been changed by nursing staff. She has full toe motion without difficulty or pain. Neurovascular status to the lower extremities is intact. - Labs CBC & Chem 7: 05/27/19 19:54 05/29/19 10:17 Labs: Abnormal Lab Results - Last 24 Hours (Table) 05/29/19 Range/Units 10:17 Sodium 134 L (137-145) mmol/L Potassium 3.4 L (3.5-5.1) mmol/L BUN 39 H (7-17) mg/dL Creatinine 1.35 H (0.52-1.04) mg/dL Glucose 131 H (74-99) mg/dL Calcium 8.0 L (8.4-10.2) mg/dL Assessment and Plan (1) Periprosthetic fracture around internal prosthetic hip joint Current Visit: Yes Status: Acute Code(s): M97.8XXA - PERIPROSTH FRACTURE AROUND OTHER INTERNAL PROSTH JOINT, INIT; Z96.649 - PRESENCE OF UNSPECIFIED ARTIFICIAL HIP JOINT SNOMED Code(s): 535786717 (2) Alzheimer's dementia Current Visit: Yes Status: Acute Code(s): G30.9 - ALZHEIMER'S DISEASE, UNSPECIFIED; F02.80 - DEMENTIA IN OTH DISEASES CLASSD ELSWHR W/O BEHAVRL DISTURB SNOMED Code(s): 33983342 (3) Fall Current Visit: Yes Status: Acute Code(s): W19.XXXA - UNSPECIFIED FALL, INITIAL ENCOUNTER SNOMED Code(s): 8219457 (4) Left femoral shaft fracture Current Visit: Yes Status: Acute Code(s): S72.302A - UNSP FRACTURE OF SHAFT OF LEFT FEMUR, INIT FOR CLOS FX SNOMED Code(s): 31088362 Plan: The clinical findings are discussed with the patient and her family. She is nonweightbearing to the left lower extremity. She may have difficulty following commands and maintaining nonweightbearing with ambulation. She may likely will be bed to chair transfers for now. She may be discharged back to her ECF when she is cleared medically.
[2019-05-29 15:09] LABS: MCH 33.7 pg (25.0-35.0); MCHC 32.2 g/dL (31.0-37.0); MCV 104.7 fL (80.0-100.0); Macrocytosis Moderate; Mean Platelet Volume 8.1; Platelet Count 293 k/uL (150-450); RDW 15.4 % (11.5-15.5); WBC 17.8 k/uL (3.8-10.6)
[2019-05-29] MEDS: LACTATED RINGERS 1,000 ML IV SCH ×2 (15:10→20:59)
[2019-05-29 15:17] LABS: HGB 6.1 gm/dL (11.4-16.0)
[2019-05-29 15:18] LABS: HCT 18.8 % (34.0-46.0)
[2019-05-29 21:20] LABS: Anisocytosis Slight; Basophils % (A) 0 %; Eosinophils # (A) 0.3 k/uL (0-0.7); Eosinophils % (A) 2 %; Lymphocytes # (A) 2.1 k/uL (1.0-4.8); Lymphocytes % (A) 12 %; MCH 32.7 pg (25.0-35.0); MCHC 33.3 g/dL (31.0-37.0); Macrocytosis Slight; Mean Platelet Volume 7.2; Monocytes # (A) 0.8 k/uL (0-1.0); Monocytes % (A) 4 %; Neutrophils % (A) 80 %; Platelet Count 272 k/uL (150-450); RBC 2.02 m/uL (3.80-5.40); RDW 16.8 % (11.5-15.5); WBC 17.5 k/uL (3.8-10.6)
[2019-05-29 21:26] LABS: MCV 98.2 fL (80.0-100.0)
[2019-05-29 21:28] LABS: HGB 6.6 gm/dL (11.4-16.0)
[2019-05-29 21:29] LABS: HCT 19.9 % (34.0-46.0)
[2019-05-29] MEDS: NIACIN TR 500 MG CAPLET PO SCH (22:10)
[2019-05-29] MEDS: LEVOTHYROXINE 125 MCG TAB PO SCH (22:10)
[2019-05-29] MEDS: DONEPEZIL 10 MG TAB PO SCH (22:10)
[2019-05-29] MEDS: SENNOSIDES-DOCUSATE SODIUM 1 EACH TAB PO SCH (22:10)
[2019-05-29] MEDS: ATORVASTATIN 80 MG TAB PO SCH (22:10)
[2019-05-29 22:14] LABS: Anisocytosis Slight; Basophils % (A) 0 %; Eosinophils # (A) 0.3 k/uL (0-0.7); Eosinophils % (A) 2 %; Lymphocytes # (A) 1.7 k/uL (1.0-4.8); Lymphocytes % (A) 11 %; MCH 33.2 pg (25.0-35.0); MCV 97.8 fL (80.0-100.0); Macrocytosis Slight; Monocytes # (A) 0.7 k/uL (0-1.0); Monocytes % (A) 5 %; Neutrophils # (A) 12.6 k/uL (1.3-7.7); Neutrophils % (A) 81 %; Platelet Count 271 k/uL (150-450); RBC 1.95 m/uL (3.80-5.40); RDW 16.7 % (11.5-15.5); WBC 15.5 k/uL (3.8-10.6)
[2019-05-29 22:16] LABS: HCT 19.1 % (34.0-46.0); HGB 6.5 gm/dL (11.4-16.0)
--- NOTE | 2019-05-29 22:33 | P.PN ---
Progress Note - Text Progress Note Date: 05/29/19 Interval history: This is a 83-year-old patient who was sent in from [facility]. Patient follows with Dr. Beau Chacon. Chronic stable medical conditions include hypertension, hyperlipidemia, hypothyroid and advanced dementia. Patient apparently lives in an Alzheimer's unit. Normally able to get around. It is unclear about the circumstances but patient suffered a fall leading to left femur fracture. Did spoken to Dr. bravo from [facility] to except with the patient. Because the patient dementia patient not able to give any history really not she is really able to participate in the discussion. There was no repeated chest pain or shortness of breath. And no history of such. Patient had a prior hip surgery. Patient has localized pain to the left hip. Status post left hip surgery on May 27 . Had significant blood loss during surgery. Today-.. sitting up in a chair. Feels a bit tired. Did tolerate some diet. Review of systems: constitutional: The skin GI department musculoskeletall Active Medications Acetaminophen (Tylenol Tab) 650 mg PO Q6HR PRN PRN Reason: Mild Pain or Fever > 100.5 Last Admin: 05/29/19 15:39 Dose: 650 mg Documented by: Hydrocodone Bitart/Acetaminophen ([place] 5-325) 1 each PO Q6HR PRN PRN Reason: Pain Scale 1 to 5 Hydrocodone Bitart/Acetaminophen ([place] 5-325) 2 each PO Q6HR PRN PRN Reason: Pain Scale 6 to 10 Artificial Tears (Artificial Tear Drops) 2 drops BOTH EYES DAILY PRN PRN Reason: Dry Eye(s) Aspirin (Aspirin) 325 mg PO DAILY [facility] Last Admin: 05/29/19 09:32 Dose: 325 mg Documented by: Atorvastatin Calcium (Lipitor) 80 mg PO HS@2100 [facility] Last Admin: 05/29/19 22:10 Dose: 80 mg Documented by: Calcium Carbonate (Oscal 500+D) 1 each PO DAILY@0700 [facility] Last Admin: 05/29/19 09:29 Dose: 1 each Documented by: Donepezil HCl (Aricept) 10 mg PO HS@2100 [facility] Last Admin: 05/29/19 22:10 Dose: 10 mg Documented by: Folic Acid (Folic Acid) 1 mg PO DAILY@0700 [facility] Last Admin: 05/29/19 09:30 Dose: 1 mg Documented by: Heparin Sodium (Porcine) (Heparin) 5,000 unit SQ Q12HR [facility] Last Admin: 05/29/19 22:10 Dose: 5,000 unit Documented by: Hydrochlorothiazide (Hydrodiuril) 50 mg PO DAILY@0700 [facility] Last Admin: 05/28/19 08:37 Dose: 50 mg Documented by: Hydromorphone HCl (Dilaudid) 0.125 mg IVP Q3HR PRN PRN Reason: Pain Scale 1 to 3 Hydromorphone HCl (Dilaudid) 0.25 mg IVP Q3HR PRN PRN Reason: Pain Scale 4 to 6 Hydromorphone HCl (Dilaudid) 0.5 mg IVP Q3HR PRN PRN Reason: Pain Scale 7 to 10 Sodium Chloride (Saline 0.9%) 1,000 mls @ 80 mls/hr IV .[id number] [facility] Last Admin: 05/29/19 20:59 Dose: Not Given Documented by: Lactated Ringer's (Lactated Ringers) 1,000 mls @ 100 mls/hr IV .Q10H [facility] Last Admin: 05/29/19 20:59 Dose: Not Given Documented by: Isosorbide Mononitrate (Imdur) 30 mg PO DAILY@0700 [facility] Last Admin: 05/29/19 09:31 Dose: 30 mg Documented by: Levothyroxine Sodium (Synthroid) 125 mcg PO HS@2100 [facility] Last Admin: 05/29/19 22:10 Dose: 125 mcg Documented by: Lidocaine HCl (.Xylocaine 1% Inj (10mg/Ml) For Iv Start) 0.1 ml INTRADERMA PER PROTOCOL PRN PRN Reason: IV Start Lisinopril (Zestril) 20 mg PO DAILY@0700 [facility] Last Admin: 05/29/19 09:31 Dose: 20 mg Documented by: Magnesium Hydroxide (Milk Of Magnesia) 2,400 mg PO DAILY PRN PRN Reason: Constipation Metoprolol Succinate (Toprol Xl) 50 mg PO DAILY@0700 [facility] Last Admin: 05/29/19 09:31 Dose: 50 mg Documented by: Multivitamins (Theragran) 1 each PO DAILY@0730 [facility] Last Admin: 05/29/19 09:32 Dose: 1 each Documented by: Naloxone HCl (Narcan) 0.2 mg IV Q2M PRN PRN Reason: Opioid Reversal Naloxone HCl (Narcan) 0.2 mg IV Q2M PRN PRN Reason: Opioid Reversal Niacin (Niacin Tr) 500 mg PO HS@2100 [facility] Last Admin: 05/29/19 22:10 Dose: 500 mg Documented by: Ondansetron HCl (Zofran) 4 mg IVP Q6HR PRN PRN Reason: Nausea And Vomiting Senna/Docusate Sodium (Senokot-S) 2 each PO HS [facility] Last Admin: 05/29/19 22:10 Dose: 2 each Documented by: Spironolactone (Aldactone) 25 mg PO Q12H [facility] Last Admin: 05/29/19 20:58 Dose: Not Given Documented by: Temazepam (Restoril) 15 mg PO HS PRN PRN Reason: Insomnia Physical examination: VITAL SIGNS: 97.9, 92, 15, 113/58, 96% room air GENERAL:sitting up in a chair, awake EYES: Pupils equal. Conjunctiva pale HEENT: External appearance of nose and ears normal, oral cavity grossly normal. NECK: JVD unable to assess; masses not palpable. HEART: First and second heart sounds are normal; no edema. LUNGS: Respiratory rate normal; clear to auscultation. ABDOMEN: Soft, nontender, liver spleen not palpable, no masses palpable. PSYCH: answering simple questions Dermatological: Left thigh incision healing well INVESTIGATIONS, reviewed in the clinical context: :hemoglobin 6.1 Stool for C. diff negative Assessment: -Left femur fracture secondary to fall, followed by ORIF and cable plate and cable fixation -Acute severe,blood loss anemia as expected from the surgery -Essential hypertension -Hyperlipidemia -Hypothyroid -Major cognitive impairment from underlying Alzheimer's dementia Plan: patient to be transfuse 1 unit of blood. Late in the evening repeat hemoglobin did come back to 6.5. A secondary unit of blood iis being ordered. Check CBC in the morning Thank you Dr. Bravo
[2019-05-30 06:49] LABS: Anisocytosis Slight; Basophils # (A) 0.1 k/uL (0-0.2); Basophils % (A) 0 %; Eosinophils # (A) 0.5 k/uL (0-0.7); Eosinophils % (A) 3 %; HCT 24.3 % (34.0-46.0); Lymphocytes # (A) 1.8 k/uL (1.0-4.8); Lymphocytes % (A) 12 %; MCH 33.3 pg (25.0-35.0); MCHC 34.2 g/dL (31.0-37.0); MCV 97.4 fL (80.0-100.0); Macrocytosis Slight; Mean Platelet Volume 7.4; Monocytes # (A) 0.7 k/uL (0-1.0); Monocytes % (A) 5 %; Neutrophils # (A) 11.4 k/uL (1.3-7.7); Neutrophils % (A) 78 %; Platelet Count 255 k/uL (150-450); RBC 2.49 m/uL (3.80-5.40); WBC 14.6 k/uL (3.8-10.6)
[2019-05-30 06:52] LABS: HGB 8.3 gm/dL (11.4-16.0)
[2019-05-30 07:33] VITALS: BP 116/67; PULSE 77; RESP 17; TEMP 98.4
[2019-05-30] MEDS: HEPARIN SODIUM,PORCINE 5,000 UNIT/ML 1 ML VIAL SQ SCH (08:20)
[2019-05-30] MEDS: ASPIRIN 325 MG TAB PO SCH (08:20)
[2019-05-30] MEDS: SPIRONOLACTONE 25 MG TAB PO SCH (08:21)
[2019-05-30] MEDS: MULTIVITAMINS, THERA 1 EACH TAB PO SCH (08:21)
[2019-05-30] MEDS: LISINOPRIL 20 MG TAB PO SCH (08:21)
[2019-05-30] MEDS: ISOSORBIDE MONONITRATE ER 30 MG TAB.ER.24H PO SCH (08:21)
[2019-05-30] MEDS: CALCIUM CARB-VIT D 500MG-200UN 1 EACH TAB PO SCH (08:21)
[2019-05-30] MEDS: FOLIC ACID 1 MG TAB PO SCH (08:21)
[2019-05-30] MEDS: METOPROLOL SUCCINATE (ER) 50 MG TAB.ER.24H PO SCH (08:21)
[2019-05-30] MEDS: HYDROCHLOROTHIAZIDE 50 MG TAB PO SCH (08:21)
[2019-05-30] MEDS: SODIUM CHLORIDE 0.9% 1,000 ML IV SCH (08:22)
[2019-05-30] MEDS: LACTATED RINGERS 1,000 ML IV SCH (08:22)
[2019-05-30 09:42] LABS: Potassium 3.5 mmol/L (3.5-5.1)
--- NOTE | 2019-05-30 10:09 | P.DS ---
Providers Date of admission: 05/25/19 15:02 Expected date of discharge: 05/30/19 Attending physician: Luis A Jaeger Consults: 05/25/19 15:03 Consult Physician Routine Consulting Provider: Chao Manrique Consult Reason/Comments: Medical clearance for surgery Do you want consulting provider notified?: Yes Primary care physician: Beau Chacon - Discharge Diagnosis(es) (1) Periprosthetic fracture around internal prosthetic hip joint Current Visit: Yes Status: Acute (2) Alzheimer's dementia Current Visit: Yes Status: Acute (3) Fall Current Visit: Yes Status: Acute (4) Left femoral shaft fracture Current Visit: Yes Status: Acute Hospital Course: This is an 83 -year-oldfemale] who is admitted to [facility] on 05/25/2019 after falling and sustaining injury to the left femur. On exam and x-ray in the emergency department he is found to have a periprosthetic fracture of the left femur. She is admitted to our service for surgical intervention and care. Patient is taken to surgery for open reduction internal fixation with cable plate of the left femur on 05/27/2019. The procedure was performed without complication or sequelae. The patient is doing fairly well postoperatively. she was given 2 units of blood on 05/29/2019 for hemoglobin of 6.1. Hemoglobin is 8.3 at time of discharge. Vital signs and labs are stable on postoperative day #3. Patient is discharged to inpatient rehab in good condition. Please see med rec for accurate list of discharge medications. Patient Condition at Discharge: Fair Plan - Discharge Summary Discharge Rx Participant: No New Discharge Prescriptions: New Aspirin 325 mg PO DAILY tab HYDROcodone/APAP 5-325MG [[place] 5-325] 1 - 2 each PO Q6HR PRN #20 tab PRN Reason: Pain Sennosides-Docusate Sodium [Senokot-S] 2 each PO HS tab Continue Artificial Tears-Hypromellose [Artificial Tear Drops] 2 drops BOTH EYES DAILY PRN PRN Reason: Dry Eye(S) Acetaminophen Tab [Tylenol] 650 mg PO Q4H PRN PRN Reason: Pain Niacin 500 mg PO HS@2100 Multivitamins, Thera [Multivitamin (formulary)] 1 tab PO DAILY@0730 Metoprolol Succinate (ER) [Toprol XL] 50 mg PO DAILY@0700 Levothyroxine Sodium 125 mcg PO HS@2100 Isosorbide Mononitrate ER [Imdur] 30 mg PO DAILY@0700 Folic Acid 0.8 mg PO DAILY@0700 Calcium Carbonate/Vitamin D3 [Calcium 600-Vit D3 200 Tablet] 1 tab PO DAILY@0700 Atorvastatin [Lipitor] 80 mg PO HS@2100 Donepezil [Aricept] 10 mg PO HS@2100 Aspirin EC [Ecotrin Low Dose] 81 mg PO HS@2100 Discontinued Acetaminophen Tab [Tylenol Tab] 650 mg PO BID@699,2099 Lisinopril [Prinivil] 20 mg PO DAILY@07 Hydrochlorothiazide [Hydrodiuril] 50 mg PO DAILY@07 Biotin 1mg 1 mg PO DAILY@0700 aMILoride HCL 5 mg PO DAILY@07 Discharge Medication List Acetaminophen Tab [Tylenol] 650 mg PO Q4H PRN 05/25/19 [History] Artificial Tears-Hypromellose [Artificial Tear Drops] 2 drops BOTH EYES DAILY PRN 05/25/19 [History] Aspirin EC [Ecotrin Low Dose] 81 mg PO HS@209905/25/19 [History] Atorvastatin [Lipitor] 80 mg PO HS@209905/25/19 [History] Calcium Carbonate/Vitamin D3 [Calcium 600-Vit D3 200 Tablet] 1 tab PO DAILY@69905/25/19 [History] Donepezil [Aricept] 10 mg PO HS@209905/25/19 [History] Folic Acid 0.8 mg PO DAILY@0705/25/19 [History] Isosorbide Mononitrate ER [Imdur] 30 mg PO DAILY@0705/25/19 [History] Levothyroxine Sodium 125 mcg PO HS@209905/25/19 [History] Metoprolol Succinate (ER) [Toprol XL] 50 mg PO DAILY@0705/25/19 [History] Multivitamins, Thera [Multivitamin (formulary)] 1 tab PO DAILY@72905/25/19 [History] Niacin 500 mg PO HS@209905/25/19 [History] Aspirin 325 mg PO DAILY tab 05/29/19 [Rx] HYDROcodone/APAP 5-325MG [[place] 5-325] 1 - 2 each PO Q6HR PRN #20 tab 05/29/19 [Rx] Sennosides-Docusate Sodium [Senokot-S] 2 each PO HS tab 05/29/19 [Rx] Follow up Appointment(s)/Referral(s): Augustina Duenas PAC [PHYSICIAN [employer]ER ASSISTANT OPERATOR] - 06/18/19 3:00 pm Beau Chacon MD [Primary Care Provider] - 1-2 days Activity/Diet/Wound Care/Special Instructions: Nonweightbearing left lower extremity. The Dermabond tape is intact at least to weeks postop. Heart Healthy diet BMP /CBC- 2 days Discharge Disposition: TRANSFER TO SNF/ECF
--- NOTE | 2019-05-30 10:30 | P.PN ---
Progress Note - Text Progress Note Date: 05/30/19 This is an addendum to the discharge summary on Lazara Garcia. Left knee x- ray is done portable at bedside for left knee swelling. X-rays shows no bony abnormality. No acute fracture noted. Patient may be discharged to extended care facility today.
--- NOTE | 2019-05-30 10:36 | XR ---
EXAMINATION TYPE: XR knee limited LT DATE OF EXAM: 05/30/2019 COMPARISON: NONE HISTORY: 83-year-old female with knee pain after fall TECHNIQUE: 2 views FINDINGS: Partially visualized lateral plate and screw fixation of the femoral shaft. Mild marginal spurring me dial compartment. Extensor mechanism appears intact. Underlying small knee joint effusion. No acute f racture, subluxation, dislocation seen. IMPRESSION: Osteopenia. Small knee joint effusion. No acute osseous abnormality seen.
--- NOTE | 2019-05-30 14:10 | P.OP ---
Date of Procedure: 05/27/19 Procedure(s) Performed: PREOPERATIVE DIAGNOSES: 1. Left periprosthetic displaced oblique femoral shaft fracture POSTOPERATIVE DIAGNOSES: 1. Left periprosthetic displaced oblique femoral shaft fracture 2. Osteoporosis PROCEDURES PERFORMED: 1. Left periprosthetic displaced oblique femoral shaft fracture ORIF with Pa cable plate ANESTHESIA: Spinal with sedation DIRECTOR SKILLS: Augustina Duenas PA-C (assistance with exposure, hemostasis, retraction, fixation, closure, dressing, splint) COMPLICATIONS: None ESTIMATED BLOOD LOSS: 500 mL. DISPOSITION: To post-anesthesia care unit INDICATIONS: Mrs. Garcia is an 83 year old overweight female with a history of falling and sustaining a severe fracture of the left femur. There is a well- fixed femoral stem in the proximal fragment. Discussion has been held regarding treatment options and patient desires to proceed with open reduction and internal fixation. Risks and potential complications of this operation were discussed at length. These are inclusive of, but not limited to: Bleeding, infection, scarring, discomfort, blood vessel and/or nerve damage, stiffness of the knee, tendon injury, malunion, nonunion, hardware irritation, need for further surgery, blood clot, pulmonary embolism, , loss of ability to walk, and other risks. Consent form has been signed. PROCEDURE: After appropriate consent was obtained, the patient was taken to the operating room placed in the supine position. Anesthesia was initiated, and after confirmation of adequate anesthesia, the patient was carefully positioned. Care was taken to make sure that all pressure points were adequately padded. The patient was arranged carefully in the fracture table frame. Prepping and draping were completed in the usual aseptic fashion using ChloraPrep. Timeout was called, confirming patient identity, side, procedure, and administration of antibiotics. Incision was created laterally over the femoral shaft, centered at the fracture site. The incision was carried down through skin and into subcutaneous tissue, and then to fascia. Fascia was split in line with the incision and a through- vastus lateralis approach was selected. The muscle fibers of the lateralis were spread bluntly down to the fracture site. Hemostasis was maintained throughout the case with bovie electrocautery. Extensive hematoma was encountered and cleared using lavage, sponges, and ronguer. The fracture site came into view and adequate exposure was accomplished. The fracture was oblique and a portion of the femoral implant could be seen at the end of the proximal fragment. The area was thoroughly lavaged with saline. Next, reduction was accomplished using the fracture table frame to provide distraction. Manual manipulation of the fracture site was necessary to reduce the fracture. Once the fracture was reduced adequately as judged by AP and lateral C-arm imaging, an 18g stainless steel cerclage wire was used to hold the reduction in place while the plate was applied. A standard [address] from Pa wa used. The plate was placed directly lateral and three cables were loaded into the plate for proximal fixation. Distal positioning of the plate was accomplished by pinning the plate distally. The cables proximally were passed around the femur carefully and provisional tightening was performed, leaving the tensioning clamps in place. Distal fixation was then performed using 1 cable and three 4.5 mm fully threaded cortical screws. All screws had excellent purchase. The proximal cables were then retensioned to 90 pounds and crimped once confirmatory C-arm images were taken and saved. The area was thoroughly irrigated with normal saline and hemostasis was obtained throughout the case using electrocautery. Closure of the fascia and IT band was performed using #2 Vicryl suture in interrupted fashion, followed by 2-0 Vicryl suture in subcutaneous tissues. Standard skin closure was performed. Sterile dressing was then applied with abundant Webril covering, and snug knee immobilizer. Vascular status of the foot remained unchanged. Patient tolerated the procedure well and taken to recovery room in stable condition. Sponge and needle counts were correct.
--- NOTE | 2019-05-30 21:59 | P.PN ---
Progress Note - Text Progress Note Date: 05/30/19 Hospital course: This is a 83-year-old patient who was sent in from [facility]. Patient follows with Dr. Beau Chacon. Chronic stable medical conditions include hypertension, hyperlipidemia, hypothyroid and advanced dementia. Patient apparently lives in an Alzheimer's unit. Normally able to get around. It is unclear about the circumstances but patient suffered a fall leading to left femur fracture. Did spoken to Dr. bravo from [facility] to except with the patient. Because the patient dementia patient not able to give any history really not she is really able to participate in the discussion. There was no repeated chest pain or shortness of breath. And no history of such. Patient had a prior hip surgery. Patient has localized pain to the left hip. Status post left hip surgery on May 27 . Had significant blood loss during surgery. Today-. Patient was transfused blood and again yesterday. Hemoglobin is could this morning comfortable. Family the bedside. He tolerated diet. Review of systems was done. Relevant finding as above Current medications are reviewed from today's electronic chart dated today Physical examination: VITAL SIGNS: GENERAL:sitting up in a chair, awake EYES: Pupils equal. Conjunctiva pale HEENT: External appearance of nose and ears normal, oral cavity grossly normal. NECK: JVD unable to assess; masses not palpable. HEART: First and second heart sounds are normal; no edema. LUNGS: Respiratory rate normal; clear to auscultation. ABDOMEN: Soft, nontender, liver spleen not palpable, no masses palpable. PSYCH: answering simple questions Dermatological: Left thigh incision healing well INVESTIGATIONS, reviewed in the clinical context: Hemoglobin 8.3 Stool for C. diff negative Assessment: -Left femur fracture secondary to fall, followed by ORIF and cable plate and cable fixation -Acute severe,blood loss anemia as expected from the surgery. Received a total of 2 units of blood -Essential hypertension -Hyperlipidemia -Hypothyroid -Major cognitive impairment from underlying Alzheimer's dementia Plan: Patient received a total of 2 units of blood. Stable this morning. Care was discussed with the family the bedside. Prognosis guarded. Thank you Dr. Bravo
== END 2019-05-30 13:10 | DRG 481 ==
LOC: EC 13:54 → 4SSUR 15:02
PROVIDERS: ADMIT Orthopaedic Surgery; ATTEND Orthopaedic Surgery
PROC: 0QS904Z Reposition Left Femoral Shaft with Internal Fixation Device, Open Approach (ICD-10-PCS; principal; 2019-05-27 12:00)
PROC: 30233N1 Transfusion of Nonautologous Red Blood Cells into Peripheral Vein, Percutaneous Approach (ICD-10-PCS; 2019-05-30)
DX: S72.332A Displaced oblique fracture of shaft of left femur, initial encounter for closed fracture (principal); M97.8XXA Periprosthetic fracture around other internal prosthetic joint, initial encounter; D62 Acute posthemorrhagic anemia; E66.3 Overweight; Z68.29 Body mass index [BMI] 29.0-29.9, adult; E78.5 Hyperlipidemia, unspecified; F02.80 Dementia in other diseases classified elsewhere, unspecified severity, without behavioral disturbance, psychotic disturbance, mood disturbance, and anxiety; E03.9 Hypothyroidism, unspecified; G30.9 Alzheimer's disease, unspecified; I10 Essential (primary) hypertension; W19.XXXA Unspecified fall, initial encounter; Z79.899 Other long term (current) drug therapy; Z90.710 Acquired absence of both cervix and uterus; Z91.81 History of falling; Z96.642 Presence of left artificial hip joint; Z90.49 Acquired absence of other specified parts of digestive tract
CPT/HCPCS: 80048; 85025; 85027; 85610; 86850; 86900; 86901; 86920; 87324; 93005; 96360; 96361; 99285

== ENCOUNTER 2019-06-21 18:53 | Observation (INO) | payer MEDICARE, BC ==
--- NOTE | 2019-06-21 19:06 | ED ---
Recheck HPI - General Stated Complaint: Poss DVT Time Seen by Provider: 06/21/19 18:57 Source: RN notes reviewed, old records reviewed Limitations: no limitations, altered mental status (History of dementia) - History of Present Illness Initial Comments: This is a 3-year-old female the ER for evaluation. Patient mildly altered dementia unable to give accurate history of a presented today for evaluation of rule out DVT left lower extremity. Patient's a postop patient. Fracture. Patient presented today for evaluation regards to left lower extremity pain. Patient is sent ER for evaluation of left lower extremity DVT. Complaint: wound re-check (LLE r/o DVT) -: unknown Returns Today for: wound recheck, other (pain) Symptoms Since Prior Visit: no new symptoms Context: other (patient transferred for evaluation and US) Associated Symptoms: none - Related Data Home Medications Medication Instructions Recorded Confirmed Acetaminophen Tab [Tylenol] 650 mg PO Q4H PRN 05/25/19 06/21/19 Artificial Tears-Hypromellose 2 drops BOTH EYES DAILY PRN 05/25/19 06/21/19 [Artificial Tear Drops] Atorvastatin [Lipitor] 80 mg PO HS@209905/25/19 06/21/19 Calcium Carbonate/Vitamin D3 1 tab PO DAILY@69905/25/19 06/21/19 [Calcium 600-Vit D3 200 Tablet] Donepezil [Aricept] 10 mg PO HS@209905/25/19 06/21/19 Folic Acid 0.8 mg PO DAILY@69905/25/19 06/21/19 Isosorbide Mononitrate ER [Imdur] 30 mg PO DAILY@69905/25/19 06/21/19 Levothyroxine Sodium 125 mcg PO HS@209905/25/19 06/21/19 Metoprolol Succinate (ER) [Toprol 50 mg PO DAILY@69905/25/19 06/21/19 XL] Multivitamins, Thera [Multivitamin 1 tab PO DAILY@69905/25/19 06/21/19 (formulary)] Niacin 500 mg PO HS@209905/25/19 06/21/19 Aspirin 325 mg PO DAILY@69906/21/19 06/21/19 HYDROcodone/APAP 5-325MG [[place] 1 tab PO Q6HR PRN 06/21/19 06/21/19 5-325] Sennosides-Docusate Sodium 2 tab PO HS@2100 06/21/19 06/21/19 [Senokot-S] Allergies Allergy/AdvReac Type Severity Reaction Status Date / Time Penicillins Allergy Swelling Verified 06/21/19 19:38 Review of Systems ROS Statement: Those systems with pertinent positive or pertinent negative responses have been documented in the HPI. ROS Other: All systems not noted in ROS Statement are negative. Past Medical History Past Medical History: Dementia, Deep Vein Thrombosis (DVT), Hyperlipidemia, Hypertension, Thyroid Disorder Additional Past Medical History / Comment(s): Hypothyroidism History of Any Multi-Drug Resistant Organisms: None Reported Past Surgical History: Cholecystectomy, Hysterectomy Additional Past Surgical History / Comment(s): Left hip replacement, [place] filter Past Anesthesia/Blood Transfusion Reactions: No Reported Reaction Past Psychological History: No Psychological Hx Reported Smoking Status: Never smoker Past Alcohol Use History: None Reported Past Drug Use History: None Reported - Past Family History Father Family Medical History: Cancer Mother Family Medical History: Cancer General Exam General appearance: alert, in no apparent distress Head exam: Present: atraumatic, normocephalic, normal inspection Eye exam: Present: normal appearance, PERRL, EOMI. Absent: scleral icterus, conjunctival injection, periorbital swelling ENT exam: Present: normal exam, mucous membranes moist Neck exam: Present: normal inspection. Absent: tenderness, meningismus, lymphadenopathy Respiratory exam: Present: normal lung sounds bilaterally. Absent: respiratory distress, wheezes, rales, rhonchi, stridor Cardiovascular Exam: Present: regular rate, normal rhythm, normal heart sounds. Absent: systolic murmur, diastolic murmur, rubs, gallop, clicks GI/Abdominal exam: Present: soft, normal bowel sounds. Absent: distended, tenderness, guarding, rebound, rigid Extremities exam: Present: normal inspection, full ROM, tenderness, normal capillary refill, joint swelling, calf tenderness, other (LKLE edema and bruising to knee). Absent: pedal edema Back exam: Present: normal inspection Neurological exam: Present: alert, oriented X3, CN II-XII intact Psychiatric exam: Present: normal affect, normal mood Skin exam: Present: warm, dry, intact, normal color. Absent: rash Course Vital Signs 06/21/19 19:07 Temperature 97 F L Pulse Rate 75 Respiratory 18 Rate O2 Sat by Pulse 95 Oximetry - Reevaluation(s) Reevaluation #1: 06/21/19 20:58 Medical record is reviewed and transferring paperwork is reviewed 06/21/19 20:58 Medical Decision Making - Medical Decision Making 83 female the ER for evaluation left lower Shorty pain and swelling. Positive "from DVT. Patient be admitted for high-dose heparin - Radiology Data Radiology results: report reviewed (Ultrasound left lower extremity negative for DVT), image reviewed Disposition Clinical Impression: Fall, Left leg DVT Disposition: ADMITTED IP TO THIS [facility] Condition: Good Is patient prescribed a controlled substance at d/c from ED?: No Referrals: Beau Chacon MD [Primary Care Provider] - 1-2 days
--- NOTE | 2019-06-21 20:44 | US ---
EXAMINATION TYPE: US venous doppler duplex LE LT DATE OF EXAM: 06/21/2019 8:17 PM COMPARISON: NONE CLINICAL HISTORY: DVT. Left thigh redness noted by family members; prior left DVT 9 years ago per hus band; possible IVC filter per SIDE PERFORMED: Left TECHNIQUE: The lower extremity deep venous system is examined utilizing real time linear array sonog gil with graded compression, doppler sonography and color-flow sonography. VESSELS IMAGED: Common Femoral Vein Deep Femoral Vein Greater Saphenous Vein * Femoral Vein Distal Posterior Tibial Veins Patient with dementia is unable to bend left knee to assess left popliteal fossa. Patient would not a llow US technologist's assistance to move patient's left knee. Left Leg: Positive for DVT in distal Femoral Vein as no color flow is seen here, internal echoes are present and vein does not compress here. IMPRESSION: There is acute deep venous thrombosis in the distal left femoral vein.
[2019-06-21] MEDS ORDERED: HEPARIN SODIUM,PORCINE 10,000 UNIT/ML 1 ML VIAL IV ONE (20:56)
[2019-06-21] MEDS ORDERED: SODIUM CHLORIDE 0.9% 1,000 ML IV ONE (20:56)
[2019-06-21] MEDS ORDERED: HEPARIN SODIUM,PORCINE 5,000 UNIT/ML 1 ML VIAL IV PRN (21:00)
[2019-06-21] MEDS: HEPARIN SOD,PORK IN 0.45% NACL 25,000 UNIT in 0.45% NACL 1 250ML.BAG IV SCH (23:24)
[2019-06-22] MEDS ORDERED: METOPROLOL SUCCINATE (ER) 50 MG TAB.ER.24H PO STA (05:19)
[2019-06-22 06:21] LABS: Basophils # (A) 0.1 k/uL (0-0.2); Basophils % (A) 1 %; Eosinophils # (A) 0.4 k/uL (0-0.7); Eosinophils % (A) 6 %; HCT 36.6 % (34.0-46.0); Hypochromasia Slight; Lymphocytes # (A) 1.4 k/uL (1.0-4.8); Lymphocytes % (A) 18 %; MCH 35.3 pg (25.0-35.0); MCHC 34.5 g/dL (31.0-37.0); Macrocytosis Slight; Mean Platelet Volume 6.5; Monocytes # (A) 0.5 k/uL (0-1.0); Monocytes % (A) 6 %; Neutrophils # (A) 5.3 k/uL (1.3-7.7); Neutrophils % (A) 68 %; Platelet Count 320 k/uL (150-450); RBC 3.57 m/uL (3.80-5.40); RDW 15.8 % (11.5-15.5); WBC 7.8 k/uL (3.8-10.6)
[2019-06-22 06:24] LABS: HGB 12.6 gm/dL (11.4-16.0); MCV 102.4 fL (80.0-100.0)
[2019-06-22 06:40] LABS: Prothrombin Time 10.8 sec (9.0-12.0)
[2019-06-22 06:54] LABS: Partial Thromboplastin Time 105.2 sec (22.0-30.0)
[2019-06-22] MEDS ORDERED: ARTIFICIAL TEARS-HYPROMELLOSE DROPS 15 ML BTL BOTH EYES PRN (13:09)
[2019-06-22] MEDS ORDERED: HYDROcodone/APAP 5-325MG 1 EACH TAB PO PRN (13:09)
[2019-06-22] MEDS ORDERED: ACETAMINOPHEN TAB 325 MG TAB PO PRN (13:09)
[2019-06-22] MEDS: ISOSORBIDE MONONITRATE ER 30 MG TAB.ER.24H PO SCH (14:40)
[2019-06-22] MEDS: METOPROLOL SUCCINATE (ER) 50 MG TAB.ER.24H PO SCH (14:41)
[2019-06-22] MEDS: HEPARIN SOD,PORK IN 0.45% NACL 25,000 UNIT in 0.45% NACL 1 250ML.BAG IV SCH (15:22)
--- NOTE | 2019-06-22 15:48 | P.CNOR ---
History of Present Illness - [facility] Consult date: 06/22/19 History of present illness: This is an 83-year-old female whom we have been following regarding her left femur periprosthetic fracture. She is status post open reduction internal fixation of the periprosthetic fracture of the hip/femur. She did of surgery was 05/27/2019. She has been residing in extended care facility. The facility had concern about swelling and had the patient evaluated in the emergency department to rule out DVT. Venous Doppler was positive for DVT. She is admitted to internal medicine. We're consulted for orthopedic evaluation and follow-up. Past Medical History Past Medical History: Dementia, Deep Vein Thrombosis (DVT), Hyperlipidemia, Hypertension, Thyroid Disorder Additional Past Medical History / Comment(s): Hypothyroidism History of Any Multi-Drug Resistant Organisms: None Reported Past Surgical History: Cholecystectomy, Hysterectomy Additional Past Surgical History / Comment(s): Left hip replacement 05/24/19, [place] filter Past Anesthesia/Blood Transfusion Reactions: No Reported Reaction Smoking Status: Never smoker - Past Family History Father Family Medical History: Cancer Mother Family Medical History: Cancer Medications and Allergies Home Medications Medication Instructions Recorded Confirmed Type Acetaminophen Tab [Tylenol] 650 mg PO Q4H PRN 05/25/19 06/21/19 History Artificial Tears-Hypromellose 2 drops BOTH EYES DAILY PRN 05/25/19 06/21/19 Hi story [Artificial Tear Drops] Atorvastatin [Lipitor] 80 mg PO HS@209905/25/19 06/21/19 History Calcium Carbonate/Vitamin D3 1 tab PO DAILY@0705/25/19 06/21/19 History [Calcium 600-Vit D3 200 Tablet] Donepezil [Aricept] 10 mg PO HS@209905/25/19 06/21/19 History Folic Acid 0.8 mg PO DAILY@69905/25/19 06/21/19 History Isosorbide Mononitrate ER [Imdur] 30 mg PO DAILY@69905/25/19 06/21/19 History Levothyroxine Sodium 125 mcg PO HS@209905/25/19 06/21/19 History Metoprolol Succinate (ER) [Toprol 50 mg PO DAILY@0700 05/25/19 06/21/19 History XL] Multivitamins, Thera [Multivitamin 1 tab PO DAILY@0700 05/25/19 09/22/19 History (formulary)] Niacin 500 mg PO HS@209905/25/19 06/21/19 History Aspirin 325 mg PO DAILY@69906/21/19 06/21/19 History HYDROcodone/APAP 5-325MG [[place] 1 tab PO Q6HR PRN 06/21/19 06/21/19 History 5-325] Sennosides-Docusate Sodium 2 tab PO HS@209906/21/19 06/21/19 History [Senokot-S] Allergies Allergy/AdvReac Type Severity Reaction Status Date / Time Penicillins Allergy Swelling Verified 06/21/19 19:38 Physical Examination This is an 83-year-old female in no acute distress. She is alert but significantly confused. She is unable to answer questions appropriately and is very poor historian. Exam of the left lower extremity reveals no erythema or ecchymosis. Incision is well-healed. There is soft tissue swelling noted to the left hip and upper thigh. She is unable to cooperate with exam and will not wiggle toes or move her foot and ankle. Passive motion of the foot and ankle does not appear to produce pain. Pedal pulse +1/4. Sensation is intact to the toes. Results - Labs Labs: Abnormal Lab Results - Last 24 Hours (Table) 06/22/19 06/22/19 06/22/19 Range/Units 06:02 06:02 15:11 RBC 3.57 L (3.80-5.40) m/uL MCV 102.4 H D (80.0-100.0) fL MCH 35.3 H (25.0-35.0) pg RDW 15.8 H (11.5-15.5) % APTT 105.2 H* 59.6 H (22.0-30.0) sec H & H 06/22/19 Range/Units 06:02 Hgb 12.6 D (11.4-16.0) gm/dL Hct 36.6 (34.0-46.0) % Coagulation 06/22/19 Range/Units 06:02 INR 1.0 (<1.2) Result Diagrams: 06/22/19 06:02 Assessment and Plan (1) Left leg DVT Current Visit: Yes Status: Acute Code(s): I82.402 - ACUTE EMBOLISM AND THOMBOS UNSP DEEP VEINS OF L LOW EXTREM SNOMED Code(s): 638341236 (2) Alzheimer's dementia Current Visit: No Status: Acute Code(s): G30.9 - ALZHEIMER'S DISEASE, UNSPECIFIED; F02.80 - DEMENTIA IN OTH DISEASES CLASSD ELSWHR W/O BEHAVRL DISTURB SNOMED Code(s): 58617636 (3) Left femoral shaft fracture Current Visit: No Status: Acute Code(s): S72.302A - UNSP FRACTURE OF SHAFT OF LEFT FEMUR, INIT FOR CLOS FX SNOMED Code(s): 47115465 (4) Periprosthetic fracture around internal prosthetic hip joint Current Visit: No Status: Acute Code(s): M97.8XXA - PERIPROSTH FRACTURE AROUND OTHER INTERNAL PROSTH JOINT, INIT; Z96.649 - PRESENCE OF UNSPECIFIED ARTIFICIAL HIP JOINT SNOMED Code(s): 301048076 (5) Status post open reduction with internal fixation of fracture Current Visit: Yes Status: Acute Code(s): Z98.890 - OTHER SPECIFIED POSTPROCEDURAL STATES; Z87.81 - PERSONAL HISTORY OF (HEALED) TRAUMATIC FRACTURE SNOMED Code(s): 715264412 Plan: The clinical findings are discussed with the patient and her nursing staff. I will order x-rays for follow-up. She is strict nonweightbearing to the left lower extremity. Her DVT will be managed by internal medicine. We will continue to follow.
--- NOTE | 2019-06-22 19:13 | XR ---
EXAMINATION TYPE: XR Hip Complete LT DATE OF EXAM: 06/22/2019 COMPARISON: 05/25/2019 HISTORY: Postop TECHNIQUE: 2 views. Findings There is a plate with screws fixing the fracture mid shaft of the left femur. Fragments are in anatomic position. There is left hip prosthesis. IMPRESSION: Anatomic reduction of the femoral fracture compared to old exam.
--- NOTE | 2019-06-22 19:15 | XR ---
EXAMINATION TYPE: XR femur LT DATE OF EXAM: 06/22/2019 COMPARISON: 05/25/2019 HISTORY: Postop TECHNIQUE: 4 views FINDINGS: There is a long plate with screws fixing anatomically the fracture mid shaft of the left fe mur. Fragments are in anatomic position. IMPRESSION: No complicating process seen. Satisfactory reduction.
[2019-06-22] MEDS ORDERED: ENOXAPARIN 80 MG/0.8 ML SYRINGE SQ STA (20:15)
--- NOTE | 2019-06-22 20:22 | P.HPIM ---
History of Present Illness H&P Date: 06/22/19 Chief Complaint: Left leg swelling History of presenting complaint: This is a 83-year-old patient who follows with Dr. Beau Chacon. Chronic stable medical conditions include hypertension, hyperlipidemia, hypothyroid and advanced dementia. Currently living at [facility]. On May 27 patient underwent left femoral shaft fracture or ORIF for a femoral s haft fracture. This was done by Dr. Jaeger. Patient had been nonweightbearing for 6 weeks. Patient was noted to have some swelling of the left like and slight bruising of the left hip. For this reason patient's transfer down here. Patient also not able to give much of history. Daughter the bedside. Patient just about able to recognize family. Ultrasound in the ER did confirm a DVT. Patient started on IV heparin. No shortness short of breath no cough. No pain in the left hip other than the baseline. No new fall. Patient's hepatitis A. No chest pain no shortness of breath. No fever no chills. Review of systems: GEN.: Tired EYES: None HEENT: None NECK: None RESPIRATORY: None CARDIOVASCULAR: None GASTROINTESTINAL: None GENITOURINARY: None MUSCULOSKELETAL: Pain in the joints] LYMPHATICS: None HEMATOLOGICAL: None PSYCHIATRY: Very forgetful NEUROLOGICAL: Baseline confused Past medical history: Hypertension, hyperlipidemia, hypothyroid, advanced dementia Social history: Lives at [facility]. No history of alcohol or smoking reported Family history: Cancer Physical examination: VITAL SIGNS: 97.8, 73, 18, 156/80, 96% room air GENERAL: BMI 25.8, laying in bed comfortable EYES: Pupils equal. Conjunctiva normal. HEENT: External appearance of nose and ears normal, oral cavity grossly normal. NECK: JVD not raised; masses not palpable. HEART: First and second heart sounds are normal; minimal edema. LUNGS: Respiratory rate normal; clear to auscultation. ABDOMEN: Soft, nontender, liver spleen not palpable, no masses palpable. PSYCH: Patient able to answer some simple questions. NEUROLOGICAL: Cranial nerves grossly intact; no facial asymmetry, power and sensation grossly intact. LYMPHATICS: No lymph nodes palpable in the axilla and neck MUSCULOSKELETAL: Evidence of osteoarthritis and limited range of motion on the left hip EXTREMITY: Swelling of the left thigh compared to the right INVESTIGATIONS, reviewed in the clinical context: White count 7.8 hemoglobin 12.6 platelets 320 Doppler ultrasound-positive for DVT in the distal femoral vein on the left Assessment: -Left femoral vein DVT, and a patient who is nonambulatory with fracture on May 25 of the left femur -Essential hypertension -Hyperlipidemia -Hypothyroid -Major cognitive impairment from underlying Alzheimer's dementia -Chronic gait dysfunction patient is nonweightbearing on the left leg, following surgery on the left femur Plan: Patient started and IV heparin in the ER. Patient was switched over to newer, oral anticoagulants starting tomorrow morning. Care was discussed with the patient's family the bedside. Other home medications are reviewed. We'll also order stockings. Questions were answered. Patient should be able to return to the F tomorrow. Given patient's age prognosis guarded. Past Medical History Past Medical History: Dementia, Deep Vein Thrombosis (DVT), Hyperlipidemia, Hypertension, Thyroid Disorder Additional Past Medical History / Comment(s): Hypothyroidism History of Any Multi-Drug Resistant Organisms: None Reported Past Surgical History: Cholecystectomy, Hysterectomy Additional Past Surgical History / Comment(s): Left hip replacement 05/24/19, [place] filter Past Anesthesia/Blood Transfusion Reactions: No Reported Reaction Smoking Status: Never smoker - Past Family History Father Family Medical History: Cancer Mother Family Medical History: Cancer Medications and Allergies Home Medications Medication Instructions Recorded Confirmed Type Acetaminophen Tab [Tylenol] 650 mg PO Q4H PRN 05/25/19 06/21/19 History Artificial Tears-Hypromellose 2 drops BOTH EYES DAILY PRN 05/25/19 06/21/19 History [Artificial Tear Drops] Atorvastatin [Lipitor] 80 mg PO HS@209905/25/19 06/21/19 History Calcium Carbonate/Vitamin D3 1 tab PO DAILY@69905/25/19 06/21/19 History [Calcium 600-Vit D3 200 Tablet] Donepezil [Aricept] 10 mg PO HS@209905/25/19 06/21/19 History Folic Acid 0.8 mg PO DAILY@69905/25/19 06/21/19 History Isosorbide Mononitrate ER [Imdur] 30 mg PO DAILY@69905/25/19 06/21/19 History Levothyroxine Sodium 125 mcg PO HS@209905/25/19 06/21/19 History Metoprolol Succinate (ER) [Toprol 50 mg PO DAILY@69905/25/19 06/21/19 History XL] Multivitamins, Thera [Multivitamin 1 tab PO DAILY@69905/25/19 06/21/19 History (formulary)] Niacin 500 mg PO HS@209905/25/19 06/21/19 History Aspirin 325 mg PO DAILY@69906/21/19 06/21/19 History HYDROcodone/APAP 5-325MG [[place] 1 tab PO Q6HR PRN 06/21/19 06/21/19 History 5-325] Sennosides-Docusate Sodium 2 tab PO HS@209906/21/19 06/21/19 History [Senokot-S] Allergies Allergy/AdvReac Type Severity Reaction Status Date / Time Penicillins Allergy Swelling Verified 06/21/19 19:38 Physical Exam Vitals: Vital Signs Temp Pulse Pulse Resp BP BP Pulse Ox 06/22/19 09:02 97.8 F 73 18 185/77 98 06/22/19 07:00 68 18 156/80 96 06/22/19 05:00 74 18 171/70 98 06/22/19 04:00 74 18 168/71 96 06/22/19 01:00 81 17 140/82 97 06/21/19 23:00 79 17 138/75 96 06/21/19 21:00 82 18 132/76 97 06/21/19 20:12 74 18 122/84 97 06/21/19 19:07 97 F L 75 18 95 Intake and Output 06/21/19 06/22/19 06/22/19 22:59 06:59 14:59 Intake Total 107.874 0 Balance 107.874 0 Intake: Intake, IV Titration 107.874 0 Amount Heparin Sod,Pork in 0.45% 107.874 0 NaCl 25,000 unit In 0.45 % NaCl 1 250ml.bag @ 18 UNITS/KG/HR 14.288 mls/hr IV .[id number] ON LICENSE OF [facility] Rx#: [id number] Other: Voiding Method Incontinent Weight 79.379 kg Results CBC & Chem 7: 06/22/19 06:02 Labs: Abnormal Lab Results - Last 24 Hours (Table) 06/22/19 06/22/19 Range/Units 06:02 06:02 RBC 3.57 L (3.80-5.40) m/uL MCV 102.4 H D (80.0-100.0) fL MCH 35.3 H (25.0-35.0) pg RDW 15.8 H (11.5-15.5) % APTT 105.2 H* (22.0-30.0) sec Thrombosis Risk Factor Assmnt - Choose All That Apply Any of the Below Risk Factors Present?: Yes Each Factor Represents 1 point: Medical pt on bed rest, Oral contraceptives or hormone replacement therapy Other Risk Factors: Yes Each Risk Factor Represents 2 Points: Patient confined to bed Each Risk Factor Represents 3 Points: Age 75 years or older, Family history of DVT/PE, History of DVT/PE Other congenital or acquired thrombophilia - If yes, enter type in comment: No Each Risk Factor Represents 5 Points: Hip, pelvis, or leg fracture (< 1 month) Thrombosis Risk Factor Assessment Total Risk Factor Score: 18 Thrombosis Risk Factor Assessment Level: High Risk
[2019-06-22 20:50] LABS: Calcium 8.5 mg/dL (8.4-10.2); Potassium 3.5 mmol/L (3.5-5.1)
[2019-06-22] MEDS ORDERED: SENNOSIDES-DOCUSATE SODIUM 1 EACH TAB PO SCH (21:00)
[2019-06-22] MEDS ORDERED: NIACIN TR 500 MG CAPLET PO SCH (21:00)
[2019-06-22] MEDS ORDERED: LEVOTHYROXINE 125 MCG TAB PO SCH (21:00)
[2019-06-22] MEDS ORDERED: DONEPEZIL 10 MG TAB PO SCH (21:00)
[2019-06-22] MEDS ORDERED: ATORVASTATIN 80 MG TAB PO SCH (21:00)
[2019-06-23 06:44] LABS: Basophils # (A) 0.1 k/uL (0-0.2); Basophils % (A) 1 %; Eosinophils # (A) 0.3 k/uL (0-0.7); Eosinophils % (A) 3 %; HCT 36.9 % (34.0-46.0); HGB 11.9 gm/dL (11.4-16.0); Hypochromasia Slight; Lymphocytes # (A) 1.7 k/uL (1.0-4.8); Lymphocytes % (A) 17 %; MCH 32.8 pg (25.0-35.0); MCHC 32.1 g/dL (31.0-37.0); MCV 102.2 fL (80.0-100.0); Macrocytosis Moderate; Mean Platelet Volume 6.2; Monocytes # (A) 0.6 k/uL (0-1.0); Monocytes % (A) 6 %; Neutrophils % (A) 71 %; Platelet Count 315 k/uL (150-450); RBC 3.61 m/uL (3.80-5.40); RDW 15.8 % (11.5-15.5); WBC 9.9 k/uL (3.8-10.6)
[2019-06-23] MEDS ORDERED: FOLIC ACID 1 MG TAB PO SCH (07:00)
[2019-06-23] MEDS ORDERED: MULTIVITAMINS, THERA 1 EACH TAB PO SCH (07:00)
[2019-06-23] MEDS ORDERED: CALCIUM CARB-VIT D 500MG-200UN 1 EACH TAB PO SCH (07:00)
[2019-06-23 07:14] LABS: Partial Thromboplastin Time 28.9 sec (22.0-30.0); Prothrombin Time 10.5 sec (9.0-12.0)
[2019-06-23] MEDS ORDERED: RIVAROXABAN 15 MG TAB PO SCH (07:30)
[2019-06-23 08:35] VITALS: BP 175/71; PULSE 81; RESP 12; TEMP 98.7
[2019-06-23] MEDS: METOPROLOL SUCCINATE (ER) 50 MG TAB.ER.24H PO SCH (08:55)
[2019-06-23] MEDS: ISOSORBIDE MONONITRATE ER 30 MG TAB.ER.24H PO SCH (08:56)
--- NOTE | 2019-06-23 09:49 | P.PN ---
Subjective Progress Note Date: 06/23/19 Principal diagnosis: Status post open reduction internal fixation left femur. Status post periprosthetic fracture left femur. DVT left lower extremity. This is an 83-year-old female who we are following regarding her left lower extremity. She is status post ORIF of her periprosthetic fracture left femur. She developed a DVT to the left lower extremity. She is currently under the care of internal medicine for anticoagulation. X-rays were taken yesterday which show good position and alignment of her prosthesis and hardware. Fracture is well aligned and healing in good position. The patient has significant confusion. There are no new complaints or concerns today. Vital signs are stable. Objective - Vital Signs Vital signs: Vital Signs Temp 98.7 F 06/23/19 07:00 Pulse 81 06/23/19 07:00 Resp 12 06/23/19 07:00 BP 175/71 06/23/19 07:00 Pulse Ox 94 L 06/23/19 07:00 Intake & Output 06/22/19 06/23/19 06/23/19 18:59 06:59 18:59 Intake Total 800 Balance 800 Intake: Intake, IV Titration 800 Amount Heparin Sod,Pork in 0.45% 0 NaCl 25,000 unit In 0.45 % NaCl 1 250ml.bag @ 18 UNITS/KG/HR 14.288 mls/hr IV .[id number] [facility] Rx#: [id number] Sodium Chloride 0.9% 1, 800 000 ml @ 100 mls/hr IV . Q10H ONE Rx#:[id number] Other: Voiding Method Incontinent Bedpan Bedpan Diaper Diaper Incontinent Incontinent # Voids 2 1 # Bowel Movements 1 - Exam This is a pleasant 83-year-old female in no acute distress. She is resting soundly. Exam is unchanged. Mild swelling to the hip and thigh. No erythema or ecchymosis. Pedal pulse is +2/4. Capillary refill is less than 3 seconds. - Labs CBC & Chem 7: 06/23/19 06:23 06/22/19 20:15 Labs: Abnormal Lab Results - Last 24 Hours (Table) 06/22/19 06/22/19 06/23/19 Range/Units 15:11 20:15 06:23 RBC 3.61 L (3.80-5.40) m/uL MCV 102.2 H (80.0-100.0) fL RDW 15.8 H (11.5-15.5) % APTT 59.6 H (22.0-30.0) sec Glucose 114 H (74-99) mg/dL Assessment and Plan (1) Left leg DVT Current Visit: Yes Status: Acute Code(s): I82.402 - ACUTE EMBOLISM AND THOMBOS UNSP DEEP VEINS OF L LOW EXTREM SNOMED Code(s): 790950203 (2) Alzheimer's dementia Current Visit: No Status: Acute Code(s): G30.9 - ALZHEIMER'S DISEASE, UNSPECIFIED; F02.80 - DEMENTIA IN OTH DISEASES CLASSD ELSWHR W/O BEHAVRL DISTURB SNOMED Code(s): 48062054 (3) Left femoral shaft fracture Current Visit: No Status: Acute Code(s): S72.302A - UNSP FRACTURE OF SHAFT OF LEFT FEMUR, INIT FOR CLOS FX SNOMED Code(s): 83170468 (4) Periprosthetic fracture around internal prosthetic hip joint Current Visit: No Status: Acute Code(s): M97.8XXA - PERIPROSTH FRACTURE AROUND OTHER INTERNAL PROSTH JOINT, INIT; Z96.649 - PRESENCE OF UNSPECIFIED ART IFICIAL HIP JOINT SNOMED Code(s): 396014801 (5) Status post open reduction with internal fixation of fracture Current Visit: Yes Status: Acute Code(s): Z98.890 - OTHER SPECIFIED POSTPROCEDURAL STATES; Z87.81 - PERSONAL HISTORY OF (HEALED) TRAUMATIC FRACTURE SNOMED Code(s): 186225326 Plan: The clinical and x-ray findings are discussed with the patient and her nursing staff. She is strict nonweightbearing to the left lower extremity. Her DVT will be managed by internal medicine. We will continue to follow peripherally.
--- NOTE | 2019-06-23 11:54 | P.DS ---
Providers Date of admission: 06/21/19 20:57 Expected date of discharge: 06/23/19 Attending physician: Chao Manrique Consults: 06/22/19 11:23 Consult Physician Routine Consulting Provider: Luis A Jaeger Consult Reason/Comments: recent hip fracture/surgical repair Do you want consulting provider notified?: Yes Primary care physician: Beau Chacon Hospital Course: Chief Complaint: Left leg swelling Hospital course: This is a 83-year-old patient who follows with Dr. Beau Chacon. Chronic stable medical conditions include hypertension, hyperlipidemia, hypothyroid and advanced dementia. Currently living at [facility]. On May 27 patient underwent left femoral shaft fracture or ORIF for a femoral shaft fracture. This was done by Dr. Jaeger. Patient had been nonweightbearing for 6 weeks. Patient was noted to have some swelling of the left like and slight bruising of the left hip. For this reason patient's transfer down here. Patient also not able to give much of history. Patient just about able to recognize family. Ultrasound in the ER did confirm a DVT. Patient started on IV heparin. No shortness short of breath no cough. No pain in the left hip other than the baseline. No new fall. Patient was switched over to Xarelto. Remains stable. X-rays of the hip showed good alignment of the recent prosthesis and hardware. Patient's remains comfortable. Consultation: Dr. Kaylyn Jaeger from orthopedics Physical examination: VITAL SIGNS: 98.7, 81, 12, 158/78, 94% room air GENERAL: BMI 25.8, laying in bed comfortable EYES: Pupils equal. Conjunctiva normal. NECK: JVD not raised; masses not palpable. HEART: First and second heart sounds are normal; minimal edema. LUNGS: Respiratory rate normal; clear to auscultation. ABDOMEN: Soft, nontender, liver spleen not palpable, no masses palpable. PSYCH: Patient able to answer some simple questions. MUSCULOSKELETAL: Evidence of osteoarthritis and limited range of motion on the left hip EXTREMITY: Swelling of the left thigh compared to the right INVESTIGATIONS, reviewed in the clinical context: White count 7.8 hemoglobin 12.6 platelets 320 Doppler ultrasound-positive for DVT in the distal femoral vein on the left Discharge diagnoses: -Acute Left femoral vein DVT, and a patient who is nonambulatory with fracture on May 25 of the left femur -Essential hypertension -Hyperlipidemia -Hypothyroid -Major cognitive impairment from underlying Alzheimer's dementia -Chronic gait dysfunction patient is nonweightbearing on the left leg, following surgery on the left femur -DO NOT RESUSCITATE Disposition: [facility] Patient Condition at Discharge: Stable Plan - Discharge Summary Discharge Rx Participant: No New Discharge Prescriptions: New Rivaroxaban [Xarelto] 15 mg PO BID-W/MEALS tab Continue Artificial Tears-Hypromellose [Artificial Tear Drops] 2 drops BOTH EYES DAILY PRN PRN Reason: Dry Eye(S) Acetaminophen Tab [Tylenol] 650 mg PO Q4H PRN PRN Reason: Pain Niacin 500 mg PO HS@2100 Multivitamins, Thera [Multivitamin (formulary)] 1 tab PO DAILY@0700 Metoprolol Succinate (ER) [Toprol XL] 50 mg PO DAILY@0700 Levothyroxine Sodium 125 mcg PO HS@2100 Isosorbide Mononitrate ER [Imdur] 30 mg PO DAILY@0700 Folic Acid 0.8 mg PO DAILY@0700 Calcium Carbonate/Vitamin D3 [Calcium 600-Vit D3 200 Tablet] 1 tab PO DAILY@0700 Atorvastatin [Lipitor] 80 mg PO HS@2100 Donepezil [Aricept] 10 mg PO HS@2100 Sennosides-Docusate Sodium [Senokot-S] 2 tab PO HS@2100 HYDROcodone/APAP 5-325MG [[place] 5-325] 1 tab PO Q6HR PRN #10 tab PRN Reason: Pain Discontinued Aspirin 325 mg PO DAILY@0700 Discharge Medication List Acetaminophen Tab [Tylenol] 650 mg PO Q4H PRN 05/25/19 [History] Artificial Tears-Hypromellose [Artificial Tear Drops] 2 drops BOTH EYES DAILY PRN 05/25/19 [History] Atorvastatin [Lipitor] 80 mg PO HS@209905/25/19 [History] Calcium Carbonate/Vitamin D3 [Calcium 600-Vit D3 200 Tablet] 1 tab PO DAILY@0700 05/25/19 [History] Donepezil [Aricept] 10 mg PO HS@209905/25/19 [History] Folic Acid 0.8 mg PO DAILY@0700 05/25/19 [History] Isosorbide Mononitrate ER [Imdur] 30 mg PO DAILY@0700 05/25/19 [History] Levothyroxine Sodium 125 mcg PO HS@209905/25/19 [History] Metoprolol Succinate (ER) [Toprol XL] 50 mg PO DAILY@69905/25/19 [History] Multivitamins, Thera [Multivitamin (formulary)] 1 tab PO DAILY@69905/25/19 [History] Niacin 500 mg PO HS@209905/25/19 [History] Sennosides-Docusate Sodium [Senokot-S] 2 tab PO HS@209906/21/19 [History] HYDROcodone/APAP 5-325MG [[place] 5-325] 1 tab PO Q6HR PRN #10 tab 06/23/19 [Rx] Rivaroxaban [Xarelto] 15 mg PO BID-W/MEALS tab 06/23/19 [Rx] Follow up Appointment(s)/Referral(s): Beau Chacon MD [Primary Care Provider] - 1-2 days Patient Instructions/Handouts: Deep Vein Thrombosis (DC), ORIF of a Leg Fracture (DC)
== END 2019-06-23 14:40 | disposition home or self-care (01) ==
LOC: EC 18:53 → 4SSUR 20:57 → INTOOBSV 20:57 → 4SSUR 06-22 04:10
PROVIDERS: ADMIT Hospitalist; ATTEND Hospitalist
DX: I82.412 Acute embolism and thrombosis of left femoral vein (principal); G30.9 Alzheimer's disease, unspecified; F02.80 Dementia in other diseases classified elsewhere, unspecified severity, without behavioral disturbance, psychotic disturbance, mood disturbance, and anxiety; M97.02XD Periprosthetic fracture around internal prosthetic left hip joint, subsequent encounter; S72.302D Unspecified fracture of shaft of left femur, subsequent encounter for closed fracture with routine healing; I10 Essential (primary) hypertension; E78.5 Hyperlipidemia, unspecified; E03.9 Hypothyroidism, unspecified; Z66 Do not resuscitate; R26.9 Unspecified abnormalities of gait and mobility; R32 Unspecified urinary incontinence; Z86.718 Personal history of other venous thrombosis and embolism; Z90.49 Acquired absence of other specified parts of digestive tract; Z96.642 Presence of left artificial hip joint; Z79.899 Other long term (current) drug therapy; Z79.890 Hormone replacement therapy; Z79.82 Long term (current) use of aspirin; Z79.891 Long term (current) use of opiate analgesic; Z88.0 Allergy status to penicillin; Z74.01 Bed confinement status; Z83.2 Family history of diseases of the blood and blood-forming organs and certain disorders involving the immune mechanism; Z80.9 Family history of malignant neoplasm, unspecified
CPT/HCPCS: 96366 ×2; 96372; 96376; 96365; 99285; 97162; 97166; 80048; 85025 ×2; 85610 ×2; 85730 ×2; 73502; 73552; 93971; G0378 ×2; J1644 ×2; J1650